=== PATIENT | female | born 1930 | race Caucasian/White ===

== ENCOUNTER 2016-09-06 09:59 | Inpatient (IN) ==
[2016-09-06] MEDS ORDERED: 0.9 % Sodium Chloride 500 ML IV.SOLN IV ONE (10:22)
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
[2016-09-06 10:32] LABS: Basophils # 0.1 K/mcL (0.0-0.2); Basophils % 0.4 %; Eosinophils % 0.1 %; Hematocrit 37.9 % (35.3-44.9); Hemoglobin 12.6 g/dL (11.5-15.4); Immature Granulocytes % 0.5 % (0-4); Lymphocytes # 0.8 K/mcL (0.6-4.6); Mean Corpuscular HGB Conc 33.2 g/dL (31.6-35.5); Mean Corpuscular Hemoglobin 32.6 pg (28.0-33.3); Mean Corpuscular Volume 98.2 fL (83.0-100.0); Monocytes # 0.9 K/mcL (0.0-1.3); Monocytes % 5.9 %; Neutrophils # 13.1 K/mcL (1.6-8.9); Platelet Count 279 K/mcL (140-400); Red Blood Count 3.86 M/mcL (3.82-4.97); Red Cell Distribution Width 14.4 % (11.5-14.5); Segmented Neutrophils % 88.1 %
[2016-09-06 10:36] LABS: INR 1.1; Prothrombin Time 11.5 Seconds (9.4-12.1)
[2016-09-06 10:39] LABS: Activated Partial Thrombo Time 28.8 Seconds (26.0-36.0)
[2016-09-06 10:46] LABS: Bilirubin,Urine Moderate (Negative); Blood,Urine Negative (Negative); Clarity,Urine Clear (Clear); Color,Urine Orange (Yellow); Glucose,Urine (UA) Normal (Normal); Ketones,Urine Trace mg/dL (Negative); Leukocyte Esterase,Urine Trace (Negative); Nitrite,Urine Negative (Negative); Protein,Urine Negative (Neg-Trace); Specific Gravity,Urine 1.022 (1.010-1.025)
[2016-09-06 10:46] LABS: Alanine Aminotransferase 136 Units/L (0-55); Albumin/Globulin Ratio 0.8 (1.1-2.2); Alkaline Phosphatase 1007 Units/L (38-126); Aspartate Amino Transferase 188 Units/L (5-34); BUN/Creatinine Ratio 18 (6-26); Bilirubin,Direct 3.5 mg/dL (0.0-0.5); Bilirubin,Indirect 0.9 mg/dL (0.0-1.2); Bilirubin,Total 4.4 mg/dL (0.2-1.2); Blood Urea Nitrogen 16 mg/dL (7-20); Calcium 8.7 mg/dL (8.6-10.8); Carbon Dioxide 26 mEq/L (19-29); Chloride 104 mEq/L (98-109); Globulin 3.9 g/dL (2.4-3.5); Glucose 112 mg/dL (70-99); Osmolality,Calculated 286 (280-300); Potassium 4.5 mEq/L (3.5-4.5); Sodium 137 mEq/L (136-145); Total Protein 6.9 g/dL (6.0-8.3); eGFR For African Americans > 60 (> 60); eGFR For Non-African Americans > 60 (> 60)
[2016-09-06 10:49] LABS: Bacteria,Urine None Seen per hpf (None-Few); Hyaline Casts,Urine None Seen per lpf (None-Few); RBC,Urine 0-3 per hpf (0-3); Squamous Epithelial Cell,Urine Moderate per lpf (None-Few); WBC,Urine 0-3 per hpf (0-3)
[2016-09-06 10:52] LABS: Amphetamine Screen,Urine Negative ng/mL (Cutoff=1000); Barbiturate Screen,Urine Negative ng/mL (Cutoff=200); Benzodiazepines Screen,Urine Negative ng/mL (Cutoff=200); Cannabinoid Screen,Urine Negative ng/mL (Cutoff = 50); Cocaine Screen,Urine Negative ng/mL (Cutoff= 300); Opiate Screen,Urine Negative ng/mL (Cutoff=300); Phencyclidine Screen,Urine Negative ng/mL (Cutoff=25)
[2016-09-06] MEDS ORDERED: 0.9 % Sodium Chloride 500 ML IVC ONE (11:04)
[2016-09-06 11:58] LABS: Lipase 39 Units/L (8-78)
[2016-09-06] MEDS ORDERED: Piperacillin/Tazobactam 3.375 GM in D5% in Water (Mini-Bag+) 100 ML IVPB ONE (12:49)
[2016-09-06] MEDS ORDERED: Ondansetron 4 MG/2 ML VIAL IVP PRN (13:49)
[2016-09-06] MEDS ORDERED: Naloxone 0.4 MG/ML INJ IVP PRN (13:49)
--- NOTE | 2016-09-06 13:59 | Internal Med History&Physical ---
<Marvin Munoz T - Last Filed: 09/06/16 17:52> Date of Encounter: 09/06/16 Internal Medicine - H&P: HPI History of present illness: Ms. Beard is a 85 year old female Past Med Surg Social Fam HX - Family History Mother History Unknown: Yes Internal Medicine - H&P: Meds Aripiprazole [Abilify] 15 mg PO QAM 02/22/16 [History] Aspirin 81 mg PO DAILY 02/22/16 [History] Cholecalciferol (Vitamin D3) [Vitamin D3] 2,000 unit PO DAILY 02/22/16 [History] Cyanocobalamin (Vitamin B-12) [Vitamin B-12] 500 mcg SL MOWEFR 02/22/16 [History ] Docusate Sodium [Dok] 100 mg PO DAILY 02/22/16 [History] Lisinopril [Zestril] 20 mg PO DAILY 02/22/16 [History] Multivitamin [Multivitamins] 1 each PO DAILY 02/22/16 [History] Metoprolol XL (24 HR) Succ [Toprol XL] 25 mg PO BID 09/06/16 [History] Vit C/Vit E/Lutein/Min/[place]-3 [Ocuvite Softgel] 1 cap PO DAILY 09/06/16 [ History] Allergies ibandronate sodium [From Boniva] Adverse Reaction (Intermediate, Verified 12:28) See Comments trazodone Adverse Reaction (Verified 02/23/16 12:27) [facility] PM: A 10-system review of systems was performed and is negative for pertinent findings except as documented above in the HPI. - Constitutional Vitals: Temp Pulse Resp BP Pulse Ox 98.0 F 80 18 179/73 98 09/06/16 10:04 09/06/16 11:05 09/06/16 13:51 09/06/16 13:51 09/06/16 11:05 Internal Med - H&P Results - Labs CBC & Chem 7: 09/06/16 10:25 09/06/16 10:25 - Attending Attestation I have independently interviewed and examined this patient. I agree with the resident/nurse practitioner with extensions as stated below. The plan of care has been discussed with the patient 85 Y/O F resident of assisted living said to be very dependent, but found to be altered by staff of her residence this morning. Patient is evaluated at bedside alone, no family members available. When asked for her complains she slowly states I am here for a checkup. She denies abdominal discomfort, she denies chest discomfort, she denies nausea or vomiting, she is very slow in mentation and sometimes stops answering questions mid-sentence. Physical exam is significant for a cachectic elderly female, jaundiced, no conjunctival pallor, she seemed stiff but is able to move all her extremities independently, she has no facial paralysis, no speech deficits except her mentation is slow, she is alert, and oriented X2, chest is clear, abdomen is soft, scaphoid, not tender, normal bowel sounds, Ann draining yellow urine. She does not have asterixis Labs and imaging reviewed: Mild hyperglycemia, transaminitis with AST/ALT 188/ 136 respectively, hyperbilirubinemia, direct, ALP 1007, normal lipase, UA: Bilirubinuria, Utox negative. Abdomen CT-hepatic and extrahepatic ductal dilatation, filling defect of the CBD s/p cholecystectomy, pancreas/kidneys unremarkable, Head CT no acute processes, CXR with atelectasis Assessment//Plan: *Obstructive jaundice, CT scan noted SBD filling defect, rule out stone vs malignancy, obtain MRCP, consult GI, Start gentle hydration, monitor Chem for pigment nephropathy *Altered mental status: Baseline is unknown, however at time of review, patient seems she, may have underlying mild dementia, Ammonia level is normal, no asterixis, it is unlikely she has hepatic encephalopathy. *Hx of HTN/Bipolar disorder: Stable, continue home meds *Leukocytosis is possibly from dehydration, Hyperglycemia, obtain A1C Rest of details as in [employer] documentation.. <Jennie Anna - Last Filed: 09/06/16 21:29> Date of Encounter: 09/06/16 Time of Encounter: 13:56 Assessment and Plan (1) Common bile duct (CBD) obstruction Current visit: Yes Status: Acute Patient with scleral icteris, elevated LFTs. Abdominal CT shows intrahepatic and extrahepatic biliary duct dilation. MRI of abdomen ordered GI consulted IV fluids 0.9NS at 80mL/hr recheck LFTs with tomorrow's labs (2) Elevated LFTs Current visit: Yes Status: Acute Patient with Tbili 4.4, Dbili 3.5, AST 108, ALT 136, Alk phos of 1007. These elevations are likely due to biliary duct obstruction as Abdominal CT showed intrahepatic and extrahepatic biliary duct dilation with common bile duct measuring 15mm. MRI of abdomen ordered GI consulted IV fluids 0.9NS at 80mL/hr recheck LFTs with labs tomorrow. (3) Altered mental status Current visit: Yes Status: Acute Patient oriented to person and place only. She follows directions, and answers questions appropriately, but does not elaborate. CT of her head was negative for any acute intracranial abnormality. She has elevated WBC and elevated LFTs , her mental status change is likely due to metabolic encephalopathy. UA was negative for infection and CXR showed atelectasis. Reorient as necessary and continue to assess for improvement in patient's mental status. Qualifiers: Altered mental status type: disorientation Qualified Code(s): R41.0 - Disorientation, unspecified (4) Dementia Current visit: Yes Status: Acute Patient with dementia and resides in assisted living. Patient not at her baseline, per the [facility] staff. Continue home dose of Abilify and monitor for improvements inmental status. Qualifiers: Dementia type: unspecified type Dementia behavioral disturbance: without behavioral disturbance Qualified Code(s): F03.90 - Unspecified dementia without behavioral disturbance (5) DVT prophylaxis Current visit: Yes Status: Acute ambulate with assistance anti-embolic stockings Internal Medicine - H&P: HPI Chief complaint: altered mental status Admitted From: Emergency Dept Plans for Post Hospital Care: Home History of present illness: Ms. Beard is a 85 year old female with hypertension, COPD, dementia, and CKD who was sent to the ED from her assisted living facility for mental status change. Her nurse reported she was not acting like herself this morning and was confused more than her baseline. Patient denies any pain, lightheadedness, dizziness, shortness of breath, palpitations. She reports she vomited yesterday , but denies any abdominal pain, diarrhea or dysuria. Evaluation in the ER was significant for elevated WBC count to 14.9, elevated LFTs with Tbili 4.4, AST/ ALT of 108/136 and alk phos of 1007. Ammonia level was normal at 19. CT of her abdomen and pelvis showed intrahepatic and extahepatic biliary duct dilation with common bile duct measuring up to 15mm. On exam, patient is alert and oriented to person and place only. She follows directions and answers questions appropriately, but does not elaborate. She has scleral icteris. Lungs are clear bilaterally to ascultation and heart has regular rate and rhythm. Abdomen is soft, nontender, with normal bowel sounds. Past Med Surg Social Fam HX - Past Medical History Medical history: COPD, dementia, hypertension, other Psychiatric history: other - Past Surgical History Surgical History: cholecystectomy - Social History Smoking Status: Former smoker Alcohol use: none Drug use: unknown Current living situation: Assisted Living All Systems PM: A 10-system review of systems was performed and is negative for pertinent findings except as documented above in the HPI. - Constitutional Constitutional: no chills, no fever(s), no night sweats - EENT Eyes: no change in vision, no discharge, no pain, no photophobia Ears: no ear discharge, no ear pain, no tinnitus Nose, mouth and throat: no dysphagia, no nasal discharge, no neck pain, no sore throat - Cardiovascular Cardiovascular ROS IM: no chest pain, no diaphoresis, no dyspnea, no lightheadedness, no palpitations, no syncope - Respiratory Respiratory: no cough, no dyspnea, no wheezing, no excessive phlegm production - Gastrointestinal Gastrointestinal: vomiting, no abdominal pain, no diarrhea, no hematemesis, no hematochezia, no melena, no nausea - Genitourinary Genitourinary: no change in urinary stream, no dysuria, no flank pain, no hematuria - Musculoskeletal Musculoskeletal ROS IM: no numbness, no tingling - Integumentary Integumentary IM: no rash, no unusual bruising - Neurological Neurological ROS: no confusion, no convulsions, no focal weakness, no numbness, no tingling, no tremor(s) - Hematologic/Lymphatic Hematologic/Lymphatic: no easy bruising - Constitutional Vitals: Temp Pulse Resp BP Pulse Ox 98.0 F 80 18 179/73 98 09/06/16 10:04 09/06/16 11:05 09/06/16 13:51 09/06/16 13:51 09/06/16 11:05 General appearance: Present: A&O X 2, pleasant - Head Head exam: Present: atraumatic, normocephalic - Eye Eye exam: Present: PERRL, scleral icterus, conjuntiva pink Pupils: Present: PERRL - Neck Neck exam general surgery: Present: supple, trachea midline. Absent: lymphadenopathy - Respiratory Respiratory exam: Present: CTAB. Absent: accessory muscle use, rales, rhonchi, wheezes - Cardiovascular Cardiovascular exam: Present: RRR, +S1, +S2. Absent: diastolic murmur, gallop, rubs, systolic murmur - GI/Abdominal GI/Abdominal exam: Present: normal bowel sounds, soft, no peritoneal signs. Absent: distended, tenderness - Extremities Exam Extremities exam: Present: warm, radial pulses palpable and symetrical. Absent : calf tenderness, cyanotic, pedal edema - Neurological Exam Neurological exam: Present: CN II-XII intact, oriented X3, no focal deficits. Absent: pronater drift, facial droop, speech deficit - Skin Skin exam: Present: dry, intact Internal Med - H&P Results - Labs CBC & Chem 7: 09/06/16 10:25 09/06/16 10:25 Labs: All Lab Results (24 Hours) 09/06/16 09/06/16 09/06/16 Range/Units 10:12 10:25 10:25 WBC 14.9 H (4.3-11.1) K/mcL RBC 3.86 (3.82-4.97) M/mcL Hgb 12.6 (11.5-15.4) g/dL Hct 37.9 (35.3-44.9) % MCV 98.2 (83.0-100.0) fL MCH 32.6 (28.0-33.3) pg MCHC 33.2 (31.6-35.5) g/dL RDW 14.4 (11.5-14.5) % Plt Count 279 (140-400) K/mcL MPV 10.0 (9.4-12.4) fL Immature Gran % 0.5 (0-4) % Seg Neutrophils % 88.1 % Lymphocytes % 5.0 % Monocytes % 5.9 % Eosinophils % 0.1 % Basophils % 0.4 % Neutrophils # 13.1 H (1.6-8.9) K/mcL Lymphocytes # 0.8 (0.6-4.6) K/mcL Monocytes # 0.9 (0.0-1.3) K/mcL Eosinophils # 0.0 (0.0-0.6) K/mcL Basophils # 0.1 (0.0-0.2) K/mcL PT 11.5 (9.4-12.1) Seconds INR 1.1 APTT 28.8 (26.0-36.0) Seconds Sodium (136-145) mEq/L Potassium (3.5-4.5) mEq/L Chloride (98-109) mEq/L Carbon Dioxide (19-29) mEq/L BUN (7-20) mg/dL Creatinine (0.57-1.11) mg/dL Est GFR ( Amer) (> 60) Est GFR (Non-Af Amer) (> 60) BUN/Creatinine Ratio (6-26) Glucose (70-99) mg/dL POC Glucose 106 H (58-89) Calculated Osmolality (280-300) Calcium (8.6-10.8) mg/dL Total Bilirubin (0.2-1.2) mg/dL Direct Bilirubin (0.0-0.5) mg/dL Indirect Bilirubin (0.0-1.2) mg/dL AST (5-34) Units/L ALT (0-55) Units/L Alkaline Phosphatase (38-126) Units/L Ammonia (18-72) mcmol/L Troponin I (0-0.03) ng/mL Serum Total Protein (6.0-8.3) g/dL Albumin (3.5-5.0) g/dL Globulin (2.4-3.5) g/dL Albumin/Globulin Ratio (1.1-2.2) Lipase (8-78) Units/L Urine Color (Yellow) Urine Clarity (Clear) Urine pH (5.0-8.0) pH Units Ur Specific [place] (1.010-1.025) Urine Protein (Neg-Trace) mg/dL Urine Glucose (UA) (Normal) mg/dL Urine Ketones (Negative) mg/dL Urine Blood (Negative) Urine Nitrite (Negative) Urine Bilirubin (Negative) Urine Urobilinogen (Normal) mg/dL Ur Leukocyte Esterase (Negative) Urine Microscopic RBC (0-3) per hpf Urine Microscopic WBC (0-3) per hpf Ur Squamous Epith Cells (None-Few) per lpf Urine Bacteria (None-Few) per hpf Hyaline Casts (None-Few) per lpf Ur Culture Indicated? (NO) Urine Opiates Screen (Jyuact=342) ng/mL Ur Barbiturates Screen (Zpsozs=575) ng/mL Ur Phencyclidine Scrn (Cutoff=25) ng/mL Ur Amphetamines Screen (Twvabo=0525) ng/mL U Benzodiazepines Scrn (Ccyojl=160) ng/mL Urine Cocaine Screen (Cutoff= 300) ng/mL U Marijuana (THC) Screen (Cutoff = 50) ng/mL 09/06/16 09/06/16 09/06/16 Range/Units 10:25 10:25 10:35 WBC (4.3-11.1) K/mcL RBC (3.82-4.97) M/mcL Hgb (11.5-15.4) g/dL Hct (35.3-44.9) % MCV (83.0-100.0) fL MCH (28.0-33.3) pg MCHC (31.6-35.5) g/dL RDW (11.5-14.5) % Plt Count (140-400) K/mcL MPV (9.4-12.4) fL Immature Gran % (0-4) % Seg Neutrophils % % Lymphocytes % % Monocytes % % Eosinophils % % Basophils % % Neutrophils # (1.6-8.9) K/mcL Lymphocytes # (0.6-4.6) K/mcL Monocytes # (0.0-1.3) K/mcL Eosinophils # (0.0-0.6) K/mcL Basophils # (0.0-0.2) K/mcL PT (9.4-12.1) Seconds INR APTT (26.0-36.0) Seconds Sodium 137 (136-145) mEq/L Potassium 4.5 (3.5-4.5) mEq/L Chloride 104 (98-109) mEq/L Carbon Dioxide 26 (19-29) mEq/L BUN 16 (7-20) mg/dL Creatinine 0.87 (0.57-1.11) mg/dL Est GFR ( Amer) > 60 (> 60) Est GFR (Non-Af Amer) > 60 (> 60) BUN/Creatinine Ratio 18 (6-26) Glucose 112 H (70-99) mg/dL POC Glucose (58-89) Calculated Osmolality 286 (280-300) Calcium 8.7 (8.6-10.8) mg/dL Total Bilirubin 4.4 H (0.2-1.2) mg/dL Direct Bilirubin 3.5 H (0.0-0.5) mg/dL Indirect Bilirubin 0.9 (0.0-1.2) mg/dL AST 188 H (5-34) Units/L ALT 136 H (0-55) Units/L Alkaline Phosphatase 1007 H (38-126) Units/L Ammonia (18-72) mcmol/L Troponin I 0.01 (0-0.03) ng/mL Serum Total Protein 6.9 (6.0-8.3) g/dL Albumin 3.0 L (3.5-5.0) g/dL Globulin 3.9 H (2.4-3.5) g/dL Albumin/Globulin Ratio 0.8 L (1.1-2.2) Lipase 39 (8-78) Units/L Urine Color [place] A (Yellow) Urine Clarity Clear (Clear) Urine pH 6.0 (5.0-8.0) pH Units Ur Specific [place] 1.022 (1.010-1.025) Urine Protein Negative (Neg-Trace) mg/dL Urine Glucose (UA) Normal (Normal) mg/dL Urine Ketones Trace H (Negative) mg/dL Urine Blood Negative (Negative) Urine Nitrite Negative (Negative) Urine Bilirubin Moderate H (Negative) Urine Urobilinogen 4.0 H (Normal) mg/dL Ur Leukocyte Esterase Trace H (Negative) Urine Microscopic RBC 0-3 (0-3) per hpf Urine Microscopic WBC 0-3 (0-3) per hpf Ur Squamous Epith Cells Moderate H (None-Few) per lpf Urine Bacteria None Seen (None-Few) per hpf Hyaline Casts None Seen (None-Few) per lpf Ur Culture Indicated? YES A (NO) Urine Opiates Screen (Bulowp=073) ng/mL Ur Barbiturates Screen (Aanvfb=455) ng/mL Ur Phencyclidine Scrn (Cutoff=25) ng/mL Ur Amphetamines Screen (Zxnycd=2982) ng/mL U Benzodiazepines Scrn (Osxjlj=170) ng/mL Urine Cocaine Screen (Cutoff= 300) ng/mL U Marijuana (THC) Screen (Cutoff = 50) ng/mL 09/06/16 09/06/16 Range/Units 10:35 11:56 WBC (4.3-11.1) K/mcL RBC (3.82-4.97) M/mcL Hgb (11.5-15.4) g/dL Hct (35.3-44.9) % MCV (83.0-100.0) fL MCH (28.0-33.3) pg MCHC (31.6-35.5) g/dL RDW (11.5-14.5) % Plt Count (140-400) K/mcL MPV (9.4-12.4) fL Immature Gran % (0-4) % Seg Neutrophils % % Lymphocytes % % Monocytes % % Eosinophils % % Basophils % % Neutrophils # (1.6-8.9) K/mcL Lymphocytes # (0.6-4.6) K/mcL Monocytes # (0.0-1.3) K/mcL Eosinophils # (0.0-0.6) K/mcL Basophils # (0.0-0.2) K/mcL PT (9.4-12.1) Seconds INR APTT (26.0-36.0) Seconds Sodium (136-145) mEq/L Potassium (3.5-4.5) mEq/L Chloride (98-109) mEq/L Carbon Dioxide (19-29) mEq/L BUN (7-20) mg/dL Creatinine (0.57-1.11) mg/dL Est GFR ( Amer) (> 60) Est GFR (Non-Af Amer) (> 60) BUN/Creatinine Ratio (6-26) Glucose (70-99) mg/dL POC Glucose (58-89) Calculated Osmolality (280-300) Calcium (8.6-10.8) mg/dL Total Bilirubin (0.2-1.2) mg/dL Direct Bilirubin (0.0-0.5) mg/dL Indirect Bilirubin (0.0-1.2) mg/dL AST (5-34) Units/L ALT (0-55) Units/L Alkaline Phosphatase (38-126) Units/L Ammonia 19 (18-72) mcmol/L Troponin I (0-0.03) ng/mL Serum Total Protein (6.0-8.3) g/dL Albumin (3.5-5.0) g/dL Globulin (2.4-3.5) g/dL Albumin/Globulin Ratio (1.1-2.2) Lipase (8-78) Units/L Urine Color (Yellow) Urine Clarity (Clear) Urine pH (5.0-8.0) pH Units Ur Specific [place] (1.010-1.025) Urine Protein (Neg-Trace) mg/dL Urine Glucose (UA) (Normal) mg/dL Urine Ketones (Negative) mg/dL Urine Blood (Negative) Urine Nitrite (Negative) Urine Bilirubin (Negative) Urine Urobilinogen (Normal) mg/dL Ur Leukocyte Esterase (Negative) Urine Microscopic RBC (0-3) per hpf Urine Microscopic WBC (0-3) per hpf Ur Squamous Epith Cells (None-Few) per lpf Urine Bacteria (None-Few) per hpf Hyaline Casts (None-Few) per lpf Ur Culture Indicated? (NO) Urine Opiates Screen Negative (Cljxdr=522) ng/mL Ur Barbiturates Screen Negative (Uxutpe=600) ng/mL Ur Phencyclidine Scrn Negative (Cutoff=25) ng/mL Ur Amphetamines Screen Negative (Ebzrai=4203) ng/mL U Benzodiazepines Scrn Negative (Bddlwv=888) ng/mL Urine Cocaine Screen Negative (Cutoff= 300) ng/mL U Marijuana (THC) Screen Negative (Cutoff = 50) ng/mL - Diagnostic Studies Chest x-ray Additional comments: Chest X-Ray 09/06/16 10:08 IMPRESSION: Retrocardiac infiltrate which could represent atelectasis or pneumonia. D/ / Storm Keller MD / Storm Keller MD Interpreting Provider: Storm Keller MD CT scan - head Additional comments: Head CT 09/06/16 10:09 IMPRESSION: No acute intracranial abnormality. Stable exam with findings compatible with mild age related atrophy and likely chronic small vessel ischemic change. D/ / Nabeel Lopez MD / Nabeel Lopez MD Interpreting Provider: Nabeel Lopez MD CT scan - abdomen Additional comments: Abdomen/Pelvis CT 09/06/16 11:03 IMPRESSION: 1. There is intrahepatic and extrahepatic biliary ductal dilatation with the common bile duct measuring up to 15 mm. There appears to be a soft tissue attenuation filling defect within the distal CBD in the region of the ampulla. Consider further evaluation with MRI/MRCP. 2. A small amount of fluid is seen within the colon, which can be seen with diarrhea. 3. Otherwise, no acute abnormality identified within the abdomen or pelvis. D/ / Loco Brand MD / Loco Brand MD Interpreting Provider: Loco Brand MD
--- NOTE | 2016-09-06 16:03 | Electrocardiograph Report ---
[address] [place], [place] [address] Test Date: 2016-09-06 Pat Name: Sherry Beard Department: 105 Room: 2A Gender: F Lorry Weigher: EDGAR : 1930 Requested By: Faina Allen Order Number: [id number] Reading MD: Christiano Bacon MD Measurements Intervals [place] Rate: 82 P: 81 KS: 170 QRS: 38 QRSD: 72 T: 109 QT: 332 QTc: 371 Interpretive Statements SINUS RHYTHM lateral ischemia BASELINE ARTIFACT Electronically Signed On 09-06-2016 16:01:54 EDT by Christiano Bacon MD
[2016-09-06] MEDS: 0.9 % Sodium Chloride 1,000 ML IVC SCH (17:53)
[2016-09-06] MEDS: Famotidine 20 MG TABLET PO SCH (20:48)
[2016-09-06] MEDS: Metoprolol XL (24 HR) Succ 25 MG TAB.ER.24H PO SCH (20:48)
[2016-09-07 05:49] LABS: Alanine Aminotransferase 87 Units/L (0-55); Albumin/Globulin Ratio 0.7 (1.1-2.2); Alkaline Phosphatase 727 Units/L (38-126); Aspartate Amino Transferase 101 Units/L (5-34); BUN/Creatinine Ratio 17 (6-26); Bilirubin,Indirect 0.9 mg/dL (0.0-1.2); Bilirubin,Total 2.5 mg/dL (0.2-1.2); Blood Urea Nitrogen 13 mg/dL (7-20); Calcium 7.9 mg/dL (8.6-10.8); Carbon Dioxide 22 mEq/L (19-29); Chloride 109 mEq/L (98-109); Globulin 3.1 g/dL (2.4-3.5); Glucose 81 mg/dL (70-99); Osmolality,Calculated 287 (280-300); Potassium 3.9 mEq/L (3.5-4.5); Sodium 139 mEq/L (136-145); eGFR For African Americans > 60 (> 60); eGFR For Non-African Americans > 60 (> 60)
[2016-09-07 05:53] LABS: Albumin 2.3 g/dL (3.5-5.0); Bilirubin,Direct 1.6 mg/dL (0.0-0.5); Total Protein 5.4 g/dL (6.0-8.3)
[2016-09-07] MEDS: *HR* Enoxaparin 40 MG/0.4 ML SYRINGE SQ SCH (06:12)
[2016-09-07] MEDS: 0.9 % Sodium Chloride 1,000 ML IVC SCH ×2 (06:13→17:33)
[2016-09-07 07:26] LABS: Acinetobacter baumannii by PCR Not Detected (Not Detect); Candida albicans by PCR Not Detected (Not Detect); Candida glabrata by PCR Not Detected (Not Detect); Candida krusei by PCR Not Detected (Not Detect); Candida parapsilosis by PCR Not Detected (Not Detect); Candida tropicalis by PCR Not Detected (Not Detect); Enterococcus by PCR Not Detected (Not Detect); Escherichia coli by PCR Not Detected (Not Detect); Klebsiella oxytoca by PCR Not Detected (Not Detect); Klebsiella pneumoniae by PCR ***DETECTED*** (Not Detect); Pseudomonas aeruginosa by PCR Not Detected (Not Detect); Serratia marcescens by PCR Not Detected (Not Detect); Staphylococcus aureus by PCR Not Detected (Not Detect); Streptococcus agalactiae(B)PCR Not Detected (Not Detect); Streptococcus by PCR Not Detected (Not Detect); Streptococcus pneumoniae PCR Not Detected (Not Detect); Streptococcus pyogenes (A) PCR Not Detected (Not Detect); blaKPC Carbapenem-Resist Gene Not Detected (Not Detect)
[2016-09-07] MEDS: ARIPiprazole 5 MG TABLET PO SCH (08:13)
[2016-09-07] MEDS: Famotidine 20 MG TABLET PO SCH (08:13)
[2016-09-07] MEDS: Lisinopril 20 MG TABLET PO SCH (08:13)
[2016-09-07] MEDS: Metoprolol XL (24 HR) Succ 25 MG TAB.ER.24H PO SCH ×2 (08:14→20:33)
[2016-09-07] MEDS: Aspirin 81 MG TAB.CHEW PO SCH (08:14)
--- NOTE | 2016-09-07 11:06 | Internal Med Progress Note ---
Date of Encounter: 09/07/16 Time of Encounter: 11:06 - Assessment and plan (1) Acute encephalopathy Current Visit: Yes Status: Resolved Assessment and plan: Patient is currently noted to be at baseline mental status, she does have underlying dementia. Continue treatment for underlying medical condition. (2) Common bile duct (CBD) obstruction Current Visit: Yes Status: Acute Assessment and plan: Patient is admitted with obstructive jaundice. MRCP showed evidence of 14 x 11 mm common bile duct stone. Patient is noted to have leukocytosis and gram- negative bacteremia. Continue IV Zosyn and IV hydration. Liver enzymes and bilirubin are noted to be improving. GI has been consulted, patient cannot undergo ERCP today due to not being nothing by mouth. Recommend to continue monitoring and to transfer to critical access Hospital in the event of deterioration over the weekend. (3) Dementia Current Visit: Yes Status: Chronic Qualifiers: Dementia type: Alzheimer's disease Alzheimer's disease onset: late-onset Dementia behavioral disturbance: without behavioral disturbance Qualified Code (s): G30.1 - Alzheimer's disease with late onset; F02.80 - Dementia in other diseases classified elsewhere without behavioral disturbance (4) Bipolar disorder Current Visit: Yes Status: Chronic Qualifiers: Active/Remission status: remission status unspecified Qualified Code(s): F31.9 - Bipolar disorder, unspecified (5) COPD (chronic obstructive pulmonary disease) Current Visit: Yes Status: Chronic Assessment and plan: Not noted to be in acute exacerbation. Continue bronchodilators and supplemental oxygen as needed. Qualifiers: COPD type: unspecified COPD Qualified Code(s): J44.9 - Chronic obstructive pulmonary disease, unspecified (6) Gram-negative bacteremia Current Visit: Yes Status: Acute Assessment and plan: Secondary to biliary etiology due to obstructive jaundice and common bile duct stone. Follow-up complete blood culture reports, and repeat cultures in a.m. Serology positive for Enterobacteriaceae and Klebsiella. Continue IV Zosyn. High risk for complications. - Subjective Interval history: Noted to be tired, denies nausea, vomiting, abdominal pain or diarrhea. Cannot undergo ERCP today as patient has not been nothing by mouth. - Constitutional Vitals: Temp Pulse Resp BP Pulse Ox 97.8 F 61 14 150/62 100 09/07/16 07:09 09/07/16 07:09 09/07/16 07:09 09/07/16 07:09 09/07/16 07:09 General appearance: Present: A&O X 2, pleasant - Respiratory Respiratory exam: Present: CTAB. Absent: accessory muscle use, rales, rhonchi, wheezes - Cardiovascular Cardiovascular exam: Present: RRR, +S1, +S2. Absent: diastolic murmur, gallop, rubs, systolic murmur - GI/Abdominal GI/Abdominal exam: Present: normal bowel sounds, soft, no peritoneal signs. Absent: distended, tenderness - Extremities Exam Extremities exam: Present: full ROM, warm, radial pulses palpable and symetrical. Absent: calf tenderness, cyanotic, pedal edema Internal Medicine: Result - Labs CBC & Chem 7: 09/08/16 06:20 09/09/16 06:40 Labs: BMP 09/07/16 04:28 Sodium 139 Potassium 3.9 Chloride 109 Carbon Dioxide 22 BUN 13 Creatinine 0.78 Glucose 81 Calcium 7.9 L Liver Function 09/07/16 Range/Units 04:28 Total Bilirubin 2.5 H (0.2-1.2) mg/dL Direct Bilirubin 1.6 H D (0.0-0.5) mg/dL AST 101 H (5-34) Units/L ALT 87 H (0-55) Units/L Alkaline Phosphatase 727 H (38-126) Units/L Albumin 2.3 L D (3.5-5.0) g/dL - ABG Interpretation ABG results: PT/INR, D-dimer PT 11.5 Seconds (9.4-12.1) 09/06/16 10:25 - VTE Documentation of Mechanical Device: Intermittent pneumatic compression device Consult Discharge Plan - Plan Referrals: Mirza Lopez DO [Primary Care Provider] - (WEB REQUEST SENT ON 09/07/16 This patient is from [facility].. )
--- NOTE | 2016-09-07 11:44 | Gastroenterology Consult Note ---
Addendum entered and electronically signed by Mark Manzano CNP 09/07/16 12 :47: Pt with cholangitis, WBC 14.9. Unable to complete ERCP due to the patient eating breakfast this morning. If the patient worsens, recommend transfer to [place]. Original Note: <Mark Manzano - Last Filed: 09/07/16 11:42> Date of Encounter: 09/07/16 Time of Encounter: 10:00 - Assessment and plan (1) Common bile duct (CBD) obstruction Current Visit: Yes Status: Acute Assessment and plan: MRCP with moderate intra-and extrahepatic biliary dilation secondary to large obstructing stone in the distal CBD measuring 14 x 11 mm, pancreatic divisum without ductal dilation. Unable to complete ERCP today because pt ate breakfast this morning. Will plan for ERCP on Saturday. NPO at midnight on Saturday night. Also, I was unable to contact her POA Ty Duke at [phone] for consent for ERCP. (2) Elevated LFTs Current Visit: Yes Status: Acute Assessment and plan: LFTs improving. MRCP shows large obstructing stone in distal CBD. Plan for ERCP Saturday. (3) Dementia Current Visit: Yes Status: Acute Qualifiers: Dementia type: unspecified type Dementia behavioral disturbance: without behavioral disturbance Qualified Code(s): F03.90 - Unspecified dementia without behavioral disturbance - Time Spent With Patient Total time spent is greater than 50% in coordination of care (as documented) at patient's floor/unit and/or counseling patient: GI History of Present Illness - Data of Consult Patient: new to practice Consult date: 09/07/16 Requesting Physician: Liz Ortiz MD - Consult Narrative Reason for consult: obstructive jaundice History of present illness: Ms. Beard is a 85 year old female with PMHx of COPD, dementia, HTN, CKD who presented to the ED from her assisted living facility for mental status change. She denies and pain, lightheadedness, dizziness, SOB, abdominal pain, nausea, vomiting, diarrhea. She was noted to have jaundice on admission, with TB 4.4, DB 3.5. AST 188, ALT 136. CT A/P with intrahepatic and extrahepatic biliary ductal dilation with CBD measuring up to 15 mm, there appears to be a soft tissue attenuation filling defect within the distal CBD in the region of the ampulla. MRCP with moderate intra-and extrahepatic biliary dilation secondary to large obstructing stone in the distal CBD measuring 14 x 11 mm, pancreatic divisum without ductal dilation. Procedures: Colonoscopy 10/04/[address] Sevilla: Nonspecific chronic inflammation. NSAIDs: ASA Anticoagulation: None Past Med Surg Social Fam HX - Past Medical History Medical history: COPD, dementia, hypertension, other Psychiatric history: other - Past Surgical History Surgical History: cholecystectomy - Social History Smoking Status: Former smoker Smokeless Tobacco Status: No Alcohol use: none Drug use: unknown - Family History Mother History Unknown: Yes - Gastrointestinal Gastrointestinal: Present: as per HPI - Constitutional Constitutional: as per HPI - EENT Eyes: as per HPI Ears: Present: as per HPI Nose, mouth and throat: Present: as per HPI - Cardiovascular Cardiovascular ROS: Present: as per HPI - Respiratory Respiratory IM: Present: as per HPI - Genitourinary Genitourinary: Absent: change in color, Urinary frequency - Neurological ROS Neurological GI: Present: as per HPI - Hematologic/Lymphatic Hematologic/Lymphatic pediatric: Present: as per HPI - Musculoskeletal Musculoskeletal ROS GI: Present: as per HPI - Integumentary Integumentary GI: Present: as per HPI - Psychiatric ROS Psychiatric GI: Present: as per HPI - Endocrine Endocrine IM: Present: as per HPI - Constitutional Vitals: Temp Pulse Resp BP Pulse Ox 97.4 F L 65 16 149/68 98 09/07/16 11:05 09/07/16 11:05 09/07/16 11:05 09/07/16 11:05 09/07/16 11:05 General appearance: Present: cooperative, A&O X 3, no acute distress, answers questions appropriately - Head Head exam: Present: atraumatic, normocephalic - Eye Eye exam: Present: scleral icterus - ENT ENT exam: Present: mucous membranes moist - Neck Neck exam general surgery: Present: normal inspection, trachea midline - Respiratory Respiratory exam: Present: CTAB. Absent: rales, rhonchi - Cardiovascular Cardiovascular exam: Present: RRR, +S1, +S2 - GI/Abdominal GI/Abdominal exam: Present: soft, no peritoneal signs. Absent: distended, firm , guarding, tenderness - Rectal Rectal exam: Present: deferred - Extremities Exam Extremities exam: Present: warm - Neurological Exam Neurological exam: Present: no focal deficits - Psychiatric Psychiatric exam: Present: normal affect, normal mood - Skin Skin exam: Present: dry, intact, warm. Absent: normal color (jaundice) Results - Labs CBC & Chem 7: 09/06/16 10:25 09/07/16 04:28 Labs: Last Result Calcium 7.9 mg/dL (8.6-10.8) L 09/07/16 04:28 Troponin I 0.01 ng/mL (0-0.03) 09/06/16 10:25 Urine Opiates Screen Negative ng/mL (Iektxs=425) 09/06/16 10:35 Entire Visit Hgb 12.6 g/dL (11.5-15.4) 09/06/16 10:25 Hct 37.9 % (35.3-44.9) 09/06/16 10:25 PT 11.5 Seconds (9.4-12.1) 09/06/16 10:25 Total Bilirubin 2.5 mg/dL (0.2-1.2) H 09/07/16 04:28 AST 101 Units/L (5-34) H 09/07/16 04:28 ALT 87 Units/L (0-55) H 09/07/16 04:28 Ammonia 19 mcmol/L (18-72) 09/06/16 11:56 Lipase 39 Units/L (8-78) 09/06/16 10:25 E. coli (PCR) Not Detected (Not Detect) 09/06/16 11:56 - ABG ABG results: PT/INR, D-dimer PT 11.5 Seconds (9.4-12.1) 09/06/16 10:25 Consult Discharge Plan - Plan Referrals: Mirza Lopez DO [Primary Care Provider] - (WEB REQUEST SENT ON 09/07/16 ) <Merlin Benitez - Last Filed: 09/07/16 14:37> Date of Encounter: 09/07/16 Time of Encounter: 10:00 - Time Spent With Patient Total time spent is greater than 50% in coordination of care (as documented) at patient's floor/unit and/or counseling patient: GI History of Present Illness - Data of Consult Requesting Physician: Liz Ortiz MD - Consult Narrative History of present illness: Ms. Beard is a 85 year old female - Constitutional Vitals: Temp Pulse Resp BP Pulse Ox 97.4 F L 65 16 149/68 98 09/07/16 11:05 09/07/16 11:05 09/07/16 11:05 09/07/16 11:05 09/07/16 11:05 Results - Labs CBC & Chem 7: 09/06/16 10:25 09/07/16 04:28 Labs: Last Result Calcium 7.9 mg/dL (8.6-10.8) L 09/07/16 04:28 Troponin I 0.01 ng/mL (0-0.03) 09/06/16 10:25 Urine Opiates Screen Negative ng/mL (Fmmlyn=315) 09/06/16 10:35 Entire Visit Hgb 12.6 g/dL (11.5-15.4) 09/06/16 10:25 Hct 37.9 % (35.3-44.9) 09/06/16 10:25 PT 11.5 Seconds (9.4-12.1) 09/06/16 10:25 Total Bilirubin 2.5 mg/dL (0.2-1.2) H 09/07/16 04:28 AST 101 Units/L (5-34) H 09/07/16 04:28 ALT 87 Units/L (0-55) H 09/07/16 04:28 Ammonia 19 mcmol/L (18-72) 09/06/16 11:56 Lipase 39 Units/L (8-78) 09/06/16 10:25 E. coli (PCR) Not Detected (Not Detect) 09/06/16 11:56 - ABG ABG results: PT/INR, D-dimer PT 11.5 Seconds (9.4-12.1) 09/06/16 10:25 - Attending Attestation I examined this patient and my medical decision-making was reviewed with the VETERANS REHABILITATION COUNSELOR/PA/Advanced Practice Nurse/Resident Physician. I agree with the documented findings, disposition and treatment plan as described except to the extent set forth below. Pt with CBD stone with cholangitis. Ate regular breakfast. LFTS better today, clinically doing well. Cont IV Abs, ERCP on saturday but if nay sign of worsening then transfer to [place].
[2016-09-07] MEDS: Piperacillin/Tazobactam 3.375 GM in D5% in Water (Mini-Bag+) 100 ML IVPB SCH ×2 (12:20→18:48)
[2016-09-08] MEDS: Piperacillin/Tazobactam 3.375 GM in D5% in Water (Mini-Bag+) 100 ML IVPB SCH ×3 (03:13→19:18)
[2016-09-08] MEDS: 0.9 % Sodium Chloride 1,000 ML IVC SCH (06:08)
[2016-09-08] MEDS: *HR* Enoxaparin 40 MG/0.4 ML SYRINGE SQ SCH (06:49)
[2016-09-08 06:55] LABS: Basophils # 0.1 K/mcL (0.0-0.2); Basophils % 1.1 %; Eosinophils # 0.3 K/mcL (0.0-0.6); Eosinophils % 4.9 %; Hematocrit 30.9 % (35.3-44.9); Immature Granulocytes % 0.7 % (0-4); Lymphocytes # 0.9 K/mcL (0.6-4.6); Lymphocytes % 15.7 %; Mean Corpuscular HGB Conc 32.7 g/dL (31.6-35.5); Mean Corpuscular Hemoglobin 32.8 pg (28.0-33.3); Mean Corpuscular Volume 100.3 fL (83.0-100.0); Mean Platelet Volume 10.6 fL (9.4-12.4); Monocytes # 0.6 K/mcL (0.0-1.3); Monocytes % 10.8 %; Neutrophils # 3.7 K/mcL (1.6-8.9); Platelet Count 201 K/mcL (140-400); Red Blood Count 3.08 M/mcL (3.82-4.97); Red Cell Distribution Width 14.3 % (11.5-14.5); Segmented Neutrophils % 66.8 %
[2016-09-08 06:59] LABS: Alanine Aminotransferase 71 Units/L (0-55); Albumin 2.1 g/dL (3.5-5.0); Albumin/Globulin Ratio 0.7 (1.1-2.2); Alkaline Phosphatase 697 Units/L (38-126); Aspartate Amino Transferase 82 Units/L (5-34); BUN/Creatinine Ratio 17 (6-26); Bilirubin,Total 1.7 mg/dL (0.2-1.2); Blood Urea Nitrogen 13 mg/dL (7-20); Calcium 7.7 mg/dL (8.6-10.8); Carbon Dioxide 19 mEq/L (19-29); Chloride 113 mEq/L (98-109); Glucose 96 mg/dL (70-99); Osmolality,Calculated 290 (280-300); Potassium 3.8 mEq/L (3.5-4.5); Sodium 140 mEq/L (136-145); Total Protein 5.1 g/dL (6.0-8.3); eGFR For African Americans > 60 (> 60); eGFR For Non-African Americans > 60 (> 60)
[2016-09-08 07:08] LABS: Hemoglobin 10.1 g/dL (11.5-15.4)
[2016-09-08] MEDS: ARIPiprazole 5 MG TABLET PO SCH (10:16)
[2016-09-08] MEDS: Metoprolol XL (24 HR) Succ 25 MG TAB.ER.24H PO SCH ×2 (10:16→21:52)
[2016-09-08] MEDS: Lisinopril 20 MG TABLET PO SCH (10:16)
[2016-09-08] MEDS: Aspirin 81 MG TAB.CHEW PO SCH (10:25)
--- NOTE | 2016-09-08 12:07 | Anesthesia Evaluation PreOp ---
Date of Encounter: 09/08/16 Time of Encounter: 12:04 - Past History Planned Operation: ERCP Cardiac History: HTN Pulmonary History: Denies Any Significant HX GRAPHIC EDITOR History: Other (Dementia) Other Medical History: Denies Any Significant HX Anesthesia History: No Prior Anesthetic Complications, Past Anesthesia ( Cholecystectomy) Alcohol Use: none Drug use: unknown Medications and Allergies Aripiprazole [Abilify] 15 mg PO QAM 02/22/16 [History] Aspirin 81 mg PO DAILY 02/22/16 [History] Cholecalciferol (Vitamin D3) [Vitamin D3] 2,000 unit PO DAILY 02/22/16 [History] Cyanocobalamin (Vitamin B-12) [Vitamin B-12] 500 mcg SL MOWEFR 02/22/16 [History ] Docusate Sodium [Dok] 100 mg PO DAILY 02/22/16 [History] Lisinopril [Zestril] 20 mg PO DAILY 02/22/16 [History] Multivitamin [Multivitamins] 1 each PO DAILY 02/22/16 [History] Metoprolol XL (24 HR) Succ [Toprol XL] 25 mg PO BID 09/06/16 [History] Vit C/Vit E/Lutein/Min/Mccormick-3 [Ocuvite Softgel] 1 cap PO DAILY 09/06/16 [ History] Allergies ibandronate sodium [From Boniva] Adverse Reaction (Intermediate, Verified 12:28) See Comments trazodone Adverse Reaction (Verified 02/23/16 12:27) Nightmare - Meds/Allergy Pre-op Review Medications Reviewed: Yes Allergies Reviewed: Yes Beta Blockers on Current Med List: Yes If Beta Blockers taken, Date/Time (Last Dose taken): today 1016am Anesthesia Results - Labs 09/08/16 06:20 09/08/16 06:20 - Imaging EKG: report reviewed (SR, lateral ischemia, baseline) Anesthesia Exam Vital Signs/O2 Sat, Most Current Temp Pulse Resp BP Pulse Ox 97.8 F 52 16 154/73 100 09/08/16 07:19 09/08/16 11:56 09/08/16 11:56 09/08/16 11:56 09/08/16 11:56 Weight: 53kg NPO (# of Hours): >8 Pain Scale: 0 Pain Scale Used: Numeric (1 - 10) - HEENT Pupil (Motor): Pupils equal, EOMI Mallampati: III (small recessive chin) Teeth: Poor dentition Oral Opening: Less than or equal to 3 - GRAPHIC EDITOR LOC: Oriented GRAPHIC EDITOR Motor: Normal RUE, Normal LUE, Normal RLE, Normal LLE, Normal Face GRAPHIC EDITOR Sensory: Normal: RUE, LUE, RLE, LLE, Face - Cardiac Rhythm: Regular - Pulmonary Breath Sounds: bilateral Clear Respiratory Effort: Symmetrical Anesthesia Assess/Plan ASA Score: 2 Modified Boykins Scale for Level of Consciousness: Cooperative, oriented, and tranquil Anesthetic Plan: General (GETA) Monitoring Plan: Standard Monitors Recovery Plan: PACU
[2016-09-08] MEDS ORDERED: *HR* Propofol 200 MG/20 ML VIAL IVP ONE (12:08)
[2016-09-08] MEDS ORDERED: *HR* FentaNYL (PF) 100 MCG/2 ML VIAL ONE (12:08)
[2016-09-08] MEDS ORDERED: Lidocaine -MPF 2% 2 ML VIAL ONE (12:11)
[2016-09-08] MEDS ORDERED: *HR* Rocuronium Bromide 50 MG/5 ML VIAL ONE (12:11)
[2016-09-08] MEDS ORDERED: Lidocaine -MPF 4% 5 ML AMPUL ONE (12:11)
[2016-09-08] MEDS ORDERED: *HR* Phenylephrine 10 MG/ML VIAL ONE (12:12)
[2016-09-08] MEDS ORDERED: Lacri-Lube 3.5 GM TUBE ONE (12:18)
[2016-09-08] MEDS ORDERED: Indomethacin 50 MG SUPP.RECT RC ONE (12:43)
[2016-09-08] MEDS ORDERED: Dexamethasone 4 MG/ML VIAL ONE (12:55)
[2016-09-08] MEDS ORDERED: Ondansetron 4 MG/2 ML VIAL ONE ×2 (13:18→14:20)
--- NOTE | 2016-09-08 16:32 | Anesthesia Evaluation Post Op ---
Date of Encounter: 09/08/16 Time of Encounter: 16:31 - Vital Signs Vital Signs: Vital Signs/O2 Sat, Most Current Temp Pulse Resp BP Pulse Ox 97.8 F 67 16 178/65 99 09/08/16 07:19 09/08/16 15:21 09/08/16 15:21 09/08/16 15:21 09/08/16 15:21 - Lungs Lungs: Clear Ascult./Percussion - Airway Airway: Non-obstructed - Cardiovascular Regular Rate - Mental Status Mental Status: Asleep with brisk response to light stimulation, Baseline Status - Pain Pain Scale: 0 - Nausea Vomiting Nausea Vomiting: Not Present - Hydration Hydration: NPO - Discharge PostOp Status: Transfer Patient to floor Attestation: I have assessed this patient and find they meet discharge criteria.
[2016-09-08] MEDS ORDERED: D5% in 0.45% NACL 1,000 ML IVC SCH (16:45)
[2016-09-08] MEDS: amLODIPine 5 MG TABLET PO SCH (19:17)
[2016-09-09] MEDS: Piperacillin/Tazobactam 3.375 GM in D5% in Water (Mini-Bag+) 100 ML IVPB SCH ×2 (05:03→11:00)
[2016-09-09] MEDS: *HR* Enoxaparin 40 MG/0.4 ML SYRINGE SQ SCH (06:22)
[2016-09-09 07:48] LABS: Alanine Aminotransferase 60 Units/L (0-55); Albumin 2.3 g/dL (3.5-5.0); Albumin/Globulin Ratio 0.7 (1.1-2.2); Alkaline Phosphatase 661 Units/L (38-126); Aspartate Amino Transferase 53 Units/L (5-34); BUN/Creatinine Ratio 13 (6-26); Bilirubin,Total 1.6 mg/dL (0.2-1.2); Blood Urea Nitrogen 11 mg/dL (7-20); Calcium 8.2 mg/dL (8.6-10.8); Carbon Dioxide 19 mEq/L (19-29); Chloride 109 mEq/L (98-109); Globulin 3.3 g/dL (2.4-3.5); Glucose 145 mg/dL (70-99); Osmolality,Calculated 290 (280-300); Potassium 3.9 mEq/L (3.5-4.5); Sodium 139 mEq/L (136-145); Total Protein 5.6 g/dL (6.0-8.3); eGFR For African Americans > 60 (> 60); eGFR For Non-African Americans > 60 (> 60)
[2016-09-09] MEDS: Lisinopril 20 MG TABLET PO SCH (10:41)
[2016-09-09] MEDS: Aspirin 81 MG TAB.CHEW PO SCH (10:42)
[2016-09-09] MEDS: ARIPiprazole 5 MG TABLET PO SCH (10:42)
--- NOTE | 2016-09-09 12:53 | Internal Med Progress Note ---
Date of Encounter: 09/09/16 Time of Encounter: 12:51 - Assessment and plan (1) Common bile duct (CBD) obstruction Current Visit: Yes Status: Acute Assessment and plan: patient noted to have large CBD stone>1cm; GI on board, failed attempt at ERCP due to abnormal anatomy/diverticulum in the duct; recommend to monitor, may require referral to tertiary care center for ERCP and stone removal. Improving LFTs; asymptomatic; continue IV antibiotics;diet as tolerated; (2) Gram-negative bacteremia Current Visit: Yes Status: Acute Assessment and plan: due to biliary etiology and obstructive jaundice; will change antibiotics to iV Levaquin; blood cultures grow Klebsiella, pansensitive; repeat blood cultures so far negative; (3) Obstructive jaundice Current Visit: Yes Status: Acute Assessment and plan: plan as above; (4) Bipolar disorder Current Visit: Yes Status: Chronic Qualifiers: Active/Remission status: remission status unspecified Qualified Code(s): F31.9 - Bipolar disorder, unspecified (5) COPD (chronic obstructive pulmonary disease) Current Visit: Yes Status: Chronic Qualifiers: COPD type: unspecified COPD Qualified Code(s): J44.9 - Chronic obstructive pulmonary disease, unspecified (6) Dementia Current Visit: Yes Status: Chronic Qualifiers: Dementia type: Alzheimer's disease Alzheimer's disease onset: late-onset Dementia behavioral disturbance: without behavioral disturbance Qualified Code (s): G30.1 - Alzheimer's disease with late onset; F02.80 - Dementia in other diseases classified elsewhere without behavioral disturbance - Subjective Interval history: Reports feeling well. No nausea, vomiting, has bowel movement since surgery. Tolerates clear liquid diet. No abdominal pain. - Constitutional Vitals: Temp Pulse Resp BP Pulse Ox 97.4 F L 70 14 107/63 98 09/09/16 08:19 09/09/16 08:19 09/09/16 08:19 09/09/16 08:19 09/09/16 08:19 General appearance: Present: A&O X 2, answers questions appropriately - Respiratory Respiratory exam: Present: CTAB. Absent: accessory muscle use, rales, rhonchi, wheezes - Cardiovascular Cardiovascular exam: Present: RRR, +S1, +S2. Absent: diastolic murmur, gallop, rubs, systolic murmur - GI/Abdominal GI/Abdominal exam: Present: normal bowel sounds, soft, no peritoneal signs. Absent: distended, tenderness Internal Medicine: Result - Labs CBC & Chem 7: 09/13/16 04:29 09/13/16 03:36 Labs: BMP 09/09/16 06:40 Sodium 139 Potassium 3.9 Chloride 109 Carbon Dioxide 19 BUN 11 Creatinine 0.83 Glucose 145 H Calcium 8.2 L Liver Function 09/09/16 Range/Units 06:40 Total Bilirubin 1.6 H (0.2-1.2) mg/dL AST 53 H (5-34) Units/L ALT 60 H (0-55) Units/L Alkaline Phosphatase 661 H (38-126) Units/L Albumin 2.3 L (3.5-5.0) g/dL - ABG Interpretation ABG results: PT/INR, D-dimer PT 11.5 Seconds (9.4-12.1) 09/06/16 10:25 - Impressions Impressions Fluoroscopy 09/08/16 12:25 IMPRESSION: Intraprocedural fluoroscopic spot images as above. See separate procedure report for more information. D/ / David Deng MD / David Deng MD Interpreting Provider: David Deng MD - VTE Documentation of Mechanical Device: Intermittent pneumatic compression device Consult Discharge Plan - Plan Referrals: Mirza Lopez DO [Primary Care Provider] - (WEB REQUEST SENT ON 09/07/16 [facility] ) Prescriptions: Amlodipine [Norvasc] 5 mg PO DAILY 30 Days Cefdinir [Omnicef] 300 mg PO BID 7 Days
[2016-09-09] MEDS ORDERED: Levofloxacin 500 MG/100 ML 500 MG/100 ML BAG IVPB SCH (13:00)
[2016-09-09] MEDS ORDERED: Levofloxacin 500 MG/100 ML 500 MG/100 ML BAG IVPB ONE (13:15)
[2016-09-09] MEDS: Metoprolol XL (24 HR) Succ 25 MG TAB.ER.24H PO SCH (13:17)
[2016-09-10] MEDS: *HR* Enoxaparin 40 MG/0.4 ML SYRINGE SQ SCH (06:22)
[2016-09-10] MEDS: Lisinopril 20 MG TABLET PO SCH (07:59)
[2016-09-10] MEDS: Aspirin 81 MG TAB.CHEW PO SCH (07:59)
[2016-09-10] MEDS: Metoprolol XL (24 HR) Succ 25 MG TAB.ER.24H PO SCH (07:59)
[2016-09-10] MEDS: ARIPiprazole 5 MG TABLET PO SCH (07:59)
--- NOTE | 2016-09-10 09:30 | Electrocardiograph Report ---
[address] [place] [address] Test Date: 2016-09-09 Pat Name: Sherry Beard Department: 112 Room: [facility] Gender: F Campaign Worker: [id number] : 1930 Requested By: Spencer Kim Order Number: [id number] Reading MD: Christiano Bacon MD Measurements Intervals [place] Rate: 52 P: 58 RI: 190 QRS: 54 QRSD: 84 T: 95 QT: 458 QTc: 437 Interpretive Statements SINUS BRADYCARDIA Electronically Signed On 09-10-2016 9:28:54 EDT by Christiano Bacon MD
--- NOTE | 2016-09-10 09:48 | Gastroenterology Progress Note ---
<Jennifer Pan - Last Filed: 09/10/16 11:27> Date of Encounter: 09/10/16 Time of Encounter: 10:15 - Assessment and plan (1) Common bile duct (CBD) obstruction Current Visit: Yes Status: Acute Assessment and plan: ERCP 09/08/[address] Benitez, LFTs trending lower. (2) Elevated LFTs Current Visit: Yes Status: Acute Assessment and plan: LFTs improving s/p ERCP 09/08/16 - Time Spent With Patient Total time spent is greater than 50% in coordination of care (as documented) at patient's floor/unit and/or counseling patient: less than 15 minutes - Subjective Interval history: Pt s/p ERCP 09/08/16. States she is feeling good and her stomach has never hurt. She was resting comfortably in bed. - Constitutional Vitals: Temp Pulse Resp BP Pulse Ox 97.9 F 61 18 164/67 99 09/10/16 07:49 09/10/16 07:49 09/10/16 07:49 09/10/16 07:49 09/10/16 07:49 General appearance: Present: cooperative, A&O X 3, no acute distress, answers questions appropriately - Head Head exam: Present: atraumatic, normocephalic - Eye Eye exam: Present: scleral icterus - Neck Neck exam general surgery: Present: normal inspection, trachea midline - Respiratory Respiratory exam: Present: CTAB - Cardiovascular Cardiovascular exam: Present: RRR, +S1, +S2 - GI/Abdominal GI/Abdominal exam: Present: normal bowel sounds, soft, no peritoneal signs - Rectal Rectal exam: Present: deferred - Extremities Exam Extremities exam: Present: warm - Neurological Exam Neurological exam: Present: no focal deficits - Psychiatric Psychiatric exam: Present: normal affect, normal mood - Skin Skin exam: Present: dry, intact, normal color, warm Results - Labs CBC & Chem 7: 09/08/16 06:20 09/09/16 06:40 Labs: Last Result Calcium 8.2 mg/dL (8.6-10.8) L 09/09/16 06:40 Troponin I 0.01 ng/mL (0-0.03) 09/06/16 10:25 Urine Opiates Screen Negative ng/mL (Jgginu=583) 09/06/16 10:35 Entire Visit Hgb 10.1 g/dL (11.5-15.4) L D 09/08/16 06:20 Hct 30.9 % (35.3-44.9) L 09/08/16 06:20 PT 11.5 Seconds (9.4-12.1) 09/06/16 10:25 Total Bilirubin 1.6 mg/dL (0.2-1.2) H 09/09/16 06:40 AST 53 Units/L (5-34) H 09/09/16 06:40 ALT 60 Units/L (0-55) H 09/09/16 06:40 Ammonia 19 mcmol/L (18-72) 09/06/16 11:56 Lipase 39 Units/L (8-78) 09/06/16 10:25 E. coli (PCR) Not Detected (Not Detect) 09/06/16 11:56 - ABG ABG results: PT/INR, D-dimer PT 11.5 Seconds (9.4-12.1) 09/06/16 10:25 - VTE Documentation of Mechanical Device: Intermittent pneumatic compression device Consult Discharge Plan - Plan Referrals: Mirza Lopez DO [Primary Care Provider] - (WEB REQUEST SENT ON 09/07/16 [facility] ) <Merlin Benitez - Last Filed: 09/10/16 17:10> Date of Encounter: 09/10/16 Time of Encounter: 13:00 - Time Spent With Patient Total time spent is greater than 50% in coordination of care (as documented) at patient's floor/unit and/or counseling patient: - Constitutional Vitals: Temp Pulse Resp BP Pulse Ox 98.6 F 73 18 168/71 98 09/10/16 16:07 09/10/16 16:07 09/10/16 16:07 09/10/16 16:07 09/10/16 16:07 Results - Labs CBC & Chem 7: 09/08/16 06:20 09/09/16 06:40 Labs: Last Result Calcium 8.2 mg/dL (8.6-10.8) L 09/09/16 06:40 Troponin I 0.01 ng/mL (0-0.03) 09/06/16 10:25 Urine Opiates Screen Negative ng/mL (Qyzwtn=342) 09/06/16 10:35 Entire Visit Hgb 10.1 g/dL (11.5-15.4) L D 09/08/16 06:20 Hct 30.9 % (35.3-44.9) L 09/08/16 06:20 PT 11.5 Seconds (9.4-12.1) 09/06/16 10:25 Total Bilirubin 1.6 mg/dL (0.2-1.2) H 09/09/16 06:40 AST 53 Units/L (5-34) H 09/09/16 06:40 ALT 60 Units/L (0-55) H 09/09/16 06:40 Ammonia 19 mcmol/L (18-72) 09/06/16 11:56 Lipase 39 Units/L (8-78) 09/06/16 10:25 E. coli (PCR) Not Detected (Not Detect) 09/06/16 11:56 - ABG ABG results: PT/INR, D-dimer PT 11.5 Seconds (9.4-12.1) 09/06/16 10:25 - Attending Attestation I examined this patient and my medical decision-making was reviewed with the CAT SWAMPER/PA/Advanced Practice Nurse/Resident Physician. I agree with the documented findings, disposition and treatment plan as described except to the extent set forth below. Repeat ERCP on saturday
[2016-09-10] MEDS ORDERED: Levofloxacin 250 MG/50 ML 250 MG/50 ML BAG IVPB SCH (13:00)
[2016-09-11 05:14] LABS: Alanine Aminotransferase 73 Units/L (0-55); Albumin 2.4 g/dL (3.5-5.0); Albumin/Globulin Ratio 0.8 (1.1-2.2); Alkaline Phosphatase 830 Units/L (38-126); Aspartate Amino Transferase 97 Units/L (5-34); BUN/Creatinine Ratio 14 (6-26); Bilirubin,Total 1.8 mg/dL (0.2-1.2); Blood Urea Nitrogen 10 mg/dL (7-20); Calcium 8.6 mg/dL (8.6-10.8); Carbon Dioxide 24 mEq/L (19-29); Chloride 108 mEq/L (98-109); Globulin 3.1 g/dL (2.4-3.5); Glucose 87 mg/dL (70-99); Osmolality,Calculated 294 (280-300); Potassium 4.3 mEq/L (3.5-4.5); Sodium 143 mEq/L (136-145); Total Protein 5.5 g/dL (6.0-8.3); eGFR For African Americans > 60 (> 60); eGFR For Non-African Americans > 60 (> 60)
[2016-09-11] MEDS: *HR* Enoxaparin 40 MG/0.4 ML SYRINGE SQ SCH (06:29)
[2016-09-11] MEDS: amLODIPine 5 MG TABLET PO SCH (06:34)
[2016-09-11] MEDS: Aspirin 81 MG TAB.CHEW PO SCH (09:37)
[2016-09-11] MEDS: ARIPiprazole 5 MG TABLET PO SCH (09:37)
[2016-09-11] MEDS: Metoprolol XL (24 HR) Succ 25 MG TAB.ER.24H PO SCH (09:37)
[2016-09-11] MEDS: Lisinopril 20 MG TABLET PO SCH (09:38)
--- NOTE | 2016-09-11 15:43 | Internal Med Progress Note ---
<Booker Badillo - Last Filed: 09/11/16 15:40> Date of Encounter: 09/11/16 Time of Encounter: 10:00 - Assessment and plan (1) Bacteremia Current Visit: Yes Status: Acute Assessment and plan: GN bacteremia with Klebsiella Pneumonia. Source is likely from gallbladder and obstructed stone. S/P ERCP with repeat on 09/12/16 Continue Rocephin. she will need a total of 2 weeks of antibiotics. Currently afebrile and has a normal WBC. Hemodynamically stable and mentation improving. (2) Common bile duct (CBD) obstruction Current Visit: Yes Status: Acute Assessment and plan: Gi following. Had ERCP 09/08/16 will have repeat ERCP on 09/12/16 Bilirubin and LFTs trending down. (3) Altered mental status Current Visit: Yes Status: Acute Assessment and plan: improving. patient Alert and orientated to person place, time and situation this AM. Qualifiers: Altered mental status type: disorientation Qualified Code(s): R41.0 - Disorientation, unspecified (4) Elevated LFTs Current Visit: Yes Status: Acute Assessment and plan: obstructive trending down. continue to follow. (5) Dementia Current Visit: Yes Status: Chronic Qualifiers: Dementia type: Alzheimer's disease Alzheimer's disease onset: late-onset Dementia behavioral disturbance: without behavioral disturbance Qualified Code (s): G30.1 - Alzheimer's disease with late onset; F02.80 - Dementia in other diseases classified elsewhere without behavioral disturbance (6) Obstructive jaundice Current Visit: Yes Status: Acute (7) Bipolar disorder Current Visit: Yes Status: Chronic Assessment and plan: continue abilify. Qualifiers: Active/Remission status: remission status unspecified Qualified Code(s): F31.9 - Bipolar disorder, unspecified (8) Hypertension Current Visit: Yes Status: Acute Assessment and plan: currently above goal. continue home medications. Will add PRN hydralazine. (9) DVT prophylaxis Current Visit: Yes Status: Acute Assessment and plan: on lovenox. - Subjective Interval history: No major events overnight. The patient denies any chest pain, shortness of breath, abdominal pain. She states she is eating well and having normal bowel bladder function. She denies any pain or discomfort this Am . she has no further complaints or concerns at this time. - Constitutional Vitals: Temp Pulse Resp BP Pulse Ox 97.5 F L 69 16 147/65 99 09/11/16 10:56 09/11/16 10:56 09/11/16 10:56 09/11/16 10:56 09/11/16 13:46 General appearance: Present: A&O X 3, pleasant - Head Head exam: Present: atraumatic, normocephalic - Eye Eye exam: Present: PERRL, conjuntiva pink, sclera anicteric Pupils: Present: PERRL - Neck Neck exam general surgery: Present: supple, trachea midline. Absent: lymphadenopathy - Respiratory Respiratory exam: Present: CTAB. Absent: accessory muscle use, rales, rhonchi, wheezes - Cardiovascular Cardiovascular exam: Present: RRR, +S1, +S2. Absent: diastolic murmur, gallop, rubs, systolic murmur - GI/Abdominal GI/Abdominal exam: Present: normal bowel sounds, soft, no peritoneal signs. Absent: distended, tenderness - Extremities Exam Extremities exam: Present: warm, radial pulses palpable and symetrical. Absent : calf tenderness, cyanotic, pedal edema - Skin Skin exam: Present: dry, intact Internal Medicine: Result - Labs CBC & Chem 7: 09/08/16 06:20 09/11/16 04:04 Labs: BMP 09/11/16 04:04 Sodium 143 Potassium 4.3 Chloride 108 Carbon Dioxide 24 BUN 10 Creatinine 0.71 Glucose 87 Calcium 8.6 Liver Function 09/11/16 Range/Units 04:04 Total Bilirubin 1.8 H (0.2-1.2) mg/dL AST 97 H (5-34) Units/L ALT 73 H (0-55) Units/L Alkaline Phosphatase 830 H (38-126) Units/L Albumin 2.4 L (3.5-5.0) g/dL - ABG Interpretation ABG results: PT/INR, D-dimer PT 11.5 Seconds (9.4-12.1) 09/06/16 10:25 - VTE Documentation of Mechanical Device: Intermittent pneumatic compression device Consult Discharge Plan - Plan Referrals: Mirza Lopez DO [Primary Care Provider] - (WEB REQUEST SENT ON 09/07/16 [facility] ) <Maximiliano Tijerina - Last Filed: 09/11/16 17:03> Date of Encounter: 09/11/16 - Constitutional Vitals: Temp Pulse Resp BP Pulse Ox 97.5 F L 69 16 147/65 99 09/11/16 10:56 09/11/16 10:56 09/11/16 10:56 09/11/16 10:56 09/11/16 13:46 Internal Medicine: Result - Labs CBC & Chem 7: 09/08/16 06:20 09/11/16 04:04 Labs: BMP 09/11/16 04:04 Sodium 143 Potassium 4.3 Chloride 108 Carbon Dioxide 24 BUN 10 Creatinine 0.71 Glucose 87 Calcium 8.6 Liver Function 09/11/16 Range/Units 04:04 Total Bilirubin 1.8 H (0.2-1.2) mg/dL AST 97 H (5-34) Units/L ALT 73 H (0-55) Units/L Alkaline Phosphatase 830 H (38-126) Units/L Albumin 2.4 L (3.5-5.0) g/dL - ABG Interpretation ABG results: PT/INR, D-dimer PT 11.5 Seconds (9.4-12.1) 09/06/16 10:25 - Attending Attestation I examined this patient and my medical decision-making was reviewed with the MASSAGE THERAPY INSTRUCTOR/PA/Advanced Practice Nurse/Resident Physician. I agree with the documented findings, disposition and treatment plan as described except to the extent set forth below. ERCP tomorrow, follow LFTs, Continue iv rocephin.
[2016-09-12 05:11] LABS: Basophils # 0.1 K/mcL (0.0-0.2); Basophils % 0.8 %; Eosinophils # 0.3 K/mcL (0.0-0.6); Eosinophils % 4.4 %; Hematocrit 34.8 % (35.3-44.9); Hemoglobin 11.6 g/dL (11.5-15.4); Immature Granulocytes % 0.1 % (0-4); Lymphocytes # 1.4 K/mcL (0.6-4.6); Lymphocytes % 19.4 %; Mean Corpuscular HGB Conc 33.3 g/dL (31.6-35.5); Mean Corpuscular Hemoglobin 32.5 pg (28.0-33.3); Mean Corpuscular Volume 97.5 fL (83.0-100.0); Mean Platelet Volume 10.2 fL (9.4-12.4); Monocytes # 0.6 K/mcL (0.0-1.3); Monocytes % 8.4 %; Neutrophils # 4.8 K/mcL (1.6-8.9); Platelet Count 240 K/mcL (140-400); Red Blood Count 3.57 M/mcL (3.82-4.97); Red Cell Distribution Width 13.8 % (11.5-14.5); Segmented Neutrophils % 66.9 %
[2016-09-12 05:27] LABS: Alanine Aminotransferase 79 Units/L (0-55); Albumin 2.5 g/dL (3.5-5.0); Albumin/Globulin Ratio 0.7 (1.1-2.2); Alkaline Phosphatase 760 Units/L (38-126); Aspartate Amino Transferase 100 Units/L (5-34); BUN/Creatinine Ratio 16 (6-26); Bilirubin,Total 1.6 mg/dL (0.2-1.2); Blood Urea Nitrogen 12 mg/dL (7-20); Calcium 8.3 mg/dL (8.6-10.8); Carbon Dioxide 28 mEq/L (19-29); Chloride 104 mEq/L (98-109); Globulin 3.4 g/dL (2.4-3.5); Glucose 98 mg/dL (70-99); Osmolality,Calculated 288 (280-300); Potassium 3.5 mEq/L (3.5-4.5); Sodium 139 mEq/L (136-145); Total Protein 5.9 g/dL (6.0-8.3); eGFR For African Americans > 60 (> 60); eGFR For Non-African Americans > 60 (> 60)
[2016-09-12] MEDS: *HR* Enoxaparin 40 MG/0.4 ML SYRINGE SQ SCH (06:41)
[2016-09-12] MEDS: Aspirin 81 MG TAB.CHEW PO SCH (09:54)
[2016-09-12] MEDS: amLODIPine 5 MG TABLET PO SCH (09:54)
[2016-09-12] MEDS: Lisinopril 20 MG TABLET PO SCH (09:55)
[2016-09-12] MEDS: Metoprolol XL (24 HR) Succ 25 MG TAB.ER.24H PO SCH (09:55)
[2016-09-12] MEDS: ARIPiprazole 5 MG TABLET PO SCH (09:56)
[2016-09-12] MEDS ORDERED: Ondansetron 4 MG/2 ML VIAL IVP ONE (12:17)
[2016-09-12] MEDS ORDERED: *HR* Propofol 200 MG/20 ML VIAL IVP ONE (12:17)
[2016-09-12] MEDS ORDERED: Lidocaine -MPF 4% 5 ML AMPUL TP ONE (12:17)
[2016-09-12] MEDS ORDERED: Lidocaine -MPF 2% 5 ML VIAL INFILT ONE (12:17)
--- NOTE | 2016-09-12 13:34 | Anesthesia Evaluation PreOp ---
Date of Encounter: 09/12/16 Time of Encounter: 13:32 - Past History Planned Operation: ERCP Cardiac History: HTN (maintained on Lisinopril, Metoprolol) Pulmonary History: Denies Any Significant HX OPERATIONS TRAINER History: Denies Any Significant HX, Other (Anxiety/depression maintained on Abilify. Dementia) Other Medical History: Denies Any Significant HX Anesthesia History: No Prior Anesthetic Complications, Past Anesthesia ([place], ERCP 09/08/2016) Alcohol Use: none Drug use: unknown Medications and Allergies Aripiprazole [Abilify] 15 mg PO QAM 02/22/16 [History] Aspirin 81 mg PO DAILY 02/22/16 [History] Cholecalciferol (Vitamin D3) [Vitamin D3] 2,000 unit PO DAILY 02/22/16 [History] Cyanocobalamin (Vitamin B-12) [Vitamin B-12] 500 mcg SL MOWEFR 02/22/16 [History ] Docusate Sodium [Dok] 100 mg PO DAILY 02/22/16 [History] Lisinopril [Zestril] 20 mg PO DAILY 02/22/16 [History] Multivitamin [Multivitamins] 1 each PO DAILY 02/22/16 [History] Metoprolol XL (24 HR) Succ [Toprol XL] 25 mg PO BID 09/06/16 [History] Vit C/Vit E/Lutein/Min/Flushing-3 [Ocuvite Softgel] 1 cap PO DAILY 09/06/16 [ History] Allergies ibandronate sodium [From Boniva] Adverse Reaction (Intermediate, Verified 12:28) See Comments trazodone Adverse Reaction (Verified 02/23/16 12:27) Nightmare - Meds/Allergy Pre-op Review Medications Reviewed: Yes Allergies Reviewed: Yes Beta Blockers on Current Med List: Yes (Metoprolol) If Beta Blockers taken, Date/Time (Last Dose taken): 09/12/2016 @ 0955 Anesthesia Results - Labs 09/12/16 05:00 09/12/16 05:00 Laboratory Results WBC 7.2 K/mcL (4.3-11.1) 09/12/16 05:00 RBC 3.57 M/mcL (3.82-4.97) L 09/12/16 05:00 Hgb 11.6 g/dL (11.5-15.4) D 09/12/16 05:00 Hct 34.8 % (35.3-44.9) L 09/12/16 05:00 MCV 97.5 fL (83.0-100.0) 09/12/16 05:00 MCH 32.5 pg (28.0-33.3) 09/12/16 05:00 MCHC 33.3 g/dL (31.6-35.5) 09/12/16 05:00 RDW 13.8 % (11.5-14.5) 09/12/16 05:00 Plt Count 240 K/mcL (140-400) 09/12/16 05:00 MPV 10.2 fL (9.4-12.4) 09/12/16 05:00 Immature Gran % 0.1 % (0-4) 09/12/16 05:00 Seg Neutrophils % 66.9 % 09/12/16 05:00 Lymphocytes % 19.4 % 09/12/16 05:00 Monocytes % 8.4 % 09/12/16 05:00 Eosinophils % 4.4 % 09/12/16 05:00 Basophils % 0.8 % 09/12/16 05:00 Neutrophils # 4.8 K/mcL (1.6-8.9) 09/12/16 05:00 Lymphocytes # 1.4 K/mcL (0.6-4.6) 09/12/16 05:00 Monocytes # 0.6 K/mcL (0.0-1.3) 09/12/16 05:00 Eosinophils # 0.3 K/mcL (0.0-0.6) 09/12/16 05:00 Basophils # 0.1 K/mcL (0.0-0.2) 09/12/16 05:00 PT 11.5 Seconds (9.4-12.1) 09/06/16 10:25 INR 1.1 09/06/16 10:25 APTT 28.8 Seconds (26.0-36.0) 09/06/16 10:25 Sodium 139 mEq/L (136-145) 09/12/16 05:00 Potassium 3.5 mEq/L (3.5-4.5) 09/12/16 05:00 Chloride 104 mEq/L (98-109) 09/12/16 05:00 Carbon Dioxide 28 mEq/L (19-29) 09/12/16 05:00 BUN 12 mg/dL (7-20) 09/12/16 05:00 Creatinine 0.73 mg/dL (0.57-1.11) 09/12/16 05:00 Est GFR ( Amer) > 60 (> 60) 09/12/16 05:00 Est GFR (Non-Af Amer) > 60 (> 60) 09/12/16 05:00 BUN/Creatinine Ratio 16 (6-26) 09/12/16 05:00 Glucose 98 mg/dL (70-99) 09/12/16 05:00 POC Glucose 106 (58-89) H 09/06/16 10:12 Calculated Osmolality 288 (280-300) 09/12/16 05:00 Calcium 8.3 mg/dL (8.6-10.8) L 09/12/16 05:00 Total Bilirubin 1.6 mg/dL (0.2-1.2) H 09/12/16 05:00 Direct Bilirubin 1.0 mg/dL (0.0-0.5) H 09/12/16 05:00 Indirect Bilirubin 0.9 mg/dL (0.0-1.2) 09/07/16 04:28 AST 100 Units/L (5-34) H 09/12/16 05:00 ALT 79 Units/L (0-55) H 09/12/16 05:00 Alkaline Phosphatase 760 Units/L (38-126) H 09/12/16 05:00 Ammonia 19 mcmol/L (18-72) 09/06/16 11:56 Troponin I 0.01 ng/mL (0-0.03) 09/06/16 10:25 Serum Total Protein 5.9 g/dL (6.0-8.3) L 09/12/16 05:00 Albumin 2.5 g/dL (3.5-5.0) L 09/12/16 05:00 Globulin 3.4 g/dL (2.4-3.5) 09/12/16 05:00 Albumin/Globulin Ratio 0.7 (1.1-2.2) L 09/12/16 05:00 Lipase 39 Units/L (8-78) 09/06/16 10:25 Urine Color Schley (Yellow) A 09/06/16 10:35 Urine Clarity Clear (Clear) 09/06/16 10:35 Urine pH 6.0 pH Units (5.0-8.0) 09/06/16 10:35 Ur Specific [place] 1.022 (1.010-1.025) 09/06/16 10:35 Urine Protein Negative mg/dL (Neg-Trace) 09/06/16 10:35 Urine Glucose (UA) Normal mg/dL (Normal) 09/06/16 10:35 Urine Ketones Trace mg/dL (Negative) H 09/06/16 10:35 Urine Blood Negative (Negative) 09/06/16 10:35 Urine Nitrite Negative (Negative) 09/06/16 10:35 Urine Bilirubin Moderate (Negative) H 09/06/16 10:35 Urine Urobilinogen 4.0 mg/dL (Normal) H 09/06/16 10:35 Ur Leukocyte Esterase Trace (Negative) H 09/06/16 10:35 Urine Microscopic RBC 0-3 per hpf (0-3) 09/06/16 10:35 Urine Microscopic WBC 0-3 per hpf (0-3) 09/06/16 10:35 Ur Squamous Epith Cells Moderate per lpf (None-Few) H 09/06/16 10:35 Urine Bacteria None Seen per hpf (None-Few) 09/06/16 10:35 Hyaline Casts None Seen per lpf (None-Few) 09/06/16 10:35 Ur Culture Indicated? YES (NO) A 09/06/16 10:35 Urine Opiates Screen Negative ng/mL (Dqbfzj=107) 09/06/16 10:35 Ur Barbiturates Screen Negative ng/mL (Kysbgk=832) 09/06/16 10:35 Ur Phencyclidine Scrn Negative ng/mL (Cutoff=25) 09/06/16 10:35 Ur Amphetamines Screen Negative ng/mL (Upagxd=9793) 09/06/16 10:35 U Benzodiazepines Scrn Negative ng/mL (Yidtds=228) 09/06/16 10:35 Urine Cocaine Screen Negative ng/mL (Cutoff= 300) 09/06/16 10:35 U Marijuana (THC) Screen Negative ng/mL (Cutoff = 50) 09/06/16 10:35 A. baumannii (PCR) Not Detected (Not Detect) 09/06/16 11:56 Kiana albicans (PCR) Not Detected (Not Detect) 09/06/16 11:56 C. glabrata (PCR) Not Detected (Not Detect) 09/06/16 11:56 C. krusei (PCR) Not Detected (Not Detect) 09/06/16 11:56 C. parapsilosis (PCR) Not Detected (Not Detect) 09/06/16 11:56 C. tropicalis (PCR) Not Detected (Not Detect) 09/06/16 11:56 Enterobacteriac sp PCR DETECTED (Not Detect) A 09/06/16 11:56 E. cloacae complex PCR Not Detected (Not Detect) 09/06/16 11:56 Enterococcus sp PCR Not Detected (Not Detect) 09/06/16 11:56 E. coli (PCR) Not Detected (Not Detect) 09/06/16 11:56 H. influenzae (PCR) Not Detected (Not Detect) 09/06/16 11:56 Klebsiella oxytoca PCR Not Detected (Not Detect) 09/06/16 11:56 Klebsiella pneumoniae DETECTED (Not Detect) A 09/06/16 11:56 List. monocytogenes PCR Not Detected (Not Detect) 09/06/16 11:56 N. meningitidis (PCR) Not Detected (Not Detect) 09/06/16 11:56 Proteus species (PCR) Not Detected (Not Detect) 09/06/16 11:56 Serratia marcescens PCR Not Detected (Not Detect) 09/06/16 11:56 Staphylococcus sp PCR Not Detected (Not Detect) 09/06/16 11:56 Staph aureus (PCR) Not Detected (Not Detect) 09/06/16 11:56 mecA-Methicil Res Gene N/A (Not Detect) 09/06/16 11:56 Streptococcus sp PCR Not Detected (Not Detect) 09/06/16 11:56 Group A Strep DNA Not Detected (Not Detect) 09/06/16 11:56 Group B Strep (PCR) Not Detected (Not Detect) 09/06/16 11:56 Strep pneumoniae (PCR) Not Detected (Not Detect) 09/06/16 11:56 P. aeruginosa (PCR) Not Detected (Not Detect) 09/06/16 11:56 Hardy/B-Vanco Res Genes N/A (Not Detect) 09/06/16 11:56 KPC (blaKPC) Detect PCR Not Detected (Not Detect) 09/06/16 11:56 Impressions Chest X-Ray 09/06/16 10:08 IMPRESSION: Retrocardiac infiltrate which could represent atelectasis or pneumonia. D/ / Storm Keller MD / Storm Keller MD Interpreting Provider: Storm Keller MD Head CT 09/06/16 10:09 IMPRESSION: No acute intracranial abnormality. Stable exam with findings compatible with mild age related atrophy and likely chronic small vessel ischemic change. D/ / Nabeel Lopez MD / Nabeel Lopez MD Interpreting Provider: Nabeel Lopez MD Abdomen/Pelvis CT 09/06/16 11:03 IMPRESSION: 1. There is intrahepatic and extrahepatic biliary ductal dilatation with the common bile duct measuring up to 15 mm. There appears to be a soft tissue attenuation filling defect within the distal CBD in the region of the ampulla. Consider further evaluation with MRI/MRCP. 2. A small amount of fluid is seen within the colon, which can be seen with diarrhea. 3. Otherwise, no acute abnormality identified within the abdomen or pelvis. D/ / Loco Brand MD / Loco Brand MD Interpreting Provider: Loco Brand MD Abdomen MRI 09/06/16 14:06 IMPRESSION: 1. Moderate intra and extrahepatic biliary dilatation secondary to a large obstructing stone in the distal common bile duct measuring 14 x 11 mm. 2. Pancreatic divisum without ductal dilatation. 3. Small hiatal hernia. 4. Status post cholecystectomy. D/ / 09/06/2016 17:18:52 Simran Archer MD / [facility] Interpreting Provider: Simran Archer MD Fluoroscopy 09/08/16 12:25 IMPRESSION: Intraprocedural fluoroscopic spot images as above. See separate procedure report for more information. D/ / David Deng MD / David Deng MD Interpreting Provider: David Deng MD - Imaging EKG: image reviewed (52bpm SB) Anesthesia Exam Vital Signs Temp Pulse Resp BP Pulse Ox 09/12/16 11:15 97.5 F L 69 18 146/71 99 09/12/16 06:56 97.5 F L 67 16 145/66 99 09/12/16 05:28 97.6 F 70 16 170/69 98 09/12/16 00:21 97.6 F 65 16 144/70 99 09/11/16 13:46 99 Intake and Output 09/11/16 09/12/16 09/12/16 23:59 07:59 15:59 Output Total 200 / 200 200 / 200 Balance -200 / -200 -200 / -200 Output: Urine 200 / 200 200 / 200 Other: Meal npo Percent of Meal Consumed 0% # Voids 1 1 # Bowel Movements 1 - HEENT Pupil (Motor): Pupils equal, EOMI Mallampati: III (small recessed chin) Teeth: Poor dentition Oral Opening: Greater than 3 - OPERATIONS TRAINER LOC: Oriented OPERATIONS TRAINER Motor: Normal RUE, Normal LUE, Normal RLE, Normal LLE, Normal Face OPERATIONS TRAINER Sensory: Normal: RUE, LUE, RLE, LLE, Face - Cardiac Rhythm: Regular Murmur: None - Pulmonary Breath Sounds: bilateral Clear Respiratory Effort: Symmetrical Anesthesia Assess/Plan ASA Score: 3 (Dementia, HTN, Anxiety/depression)
[2016-09-12] MEDS ORDERED: Ringers Solution, Lactated 1,000 ML IVC SCH (13:45)
[2016-09-12] MEDS ORDERED: *HR* FentaNYL (PF) 100 MCG/2 ML VIAL ONE (13:53)
--- NOTE | 2016-09-12 13:54 | Internal Med Progress Note ---
<Booker Badillo - Last Filed: 09/12/16 13:49> Date of Encounter: 09/12/16 Time of Encounter: 08:35 - Assessment and plan (1) Bacteremia Current Visit: Yes Status: Acute Assessment and plan: GN bacteremia with Klebsiella Pneumonia. Source is likely from gallbladder and obstructed stone. S/P ERCP with repeat on 09/12/16 Continue Rocephin. she will need a total of 2 weeks of antibiotics. Currently afebrile and has a normal WBC. Hemodynamically stable and mentation improving. (2) Common bile duct (CBD) obstruction Current Visit: Yes Status: Acute Assessment and plan: Gi following. Had ERCP 09/08/16 will have repeat ERCP on 09/12/16 Bilirubin and LFTs trending down. (3) Altered mental status Current Visit: Yes Status: Acute Assessment and plan: improving. patient Alert and orientated to person place, time and situation this AM. Qualifiers: Altered mental status type: disorientation Qualified Code(s): R41.0 - Disorientation, unspecified (4) Elevated LFTs Current Visit: Yes Status: Acute Assessment and plan: obstructive trending down. continue to follow. (5) Dementia Current Visit: Yes Status: Chronic Qualifiers: Dementia type: Alzheimer's disease Alzheimer's disease onset: late-onset Dementia behavioral disturbance: without behavioral disturbance Qualified Code (s): G30.1 - Alzheimer's disease with late onset; F02.80 - Dementia in other diseases classified elsewhere without behavioral disturbance (6) Obstructive jaundice Current Visit: Yes Status: Acute (7) Bipolar disorder Current Visit: Yes Status: Chronic Assessment and plan: continue abilify. Qualifiers: Active/Remission status: remission status unspecified Qualified Code(s): F31.9 - Bipolar disorder, unspecified (8) Hypertension Current Visit: Yes Status: Acute Assessment and plan: currently above goal. continue home medications. continue PRN hydralazine. (9) DVT prophylaxis Current Visit: Yes Status: Acute Assessment and plan: on lovenox. - Subjective Interval history: No major events overnight. This morning patient still states that she is feeling better. She denies any pain or discomfort. Denies any dyspnea. Denies chest pain. She has no further complaints or concerns at this time. Schedule for ERCP later today. - Constitutional Vitals: Temp Pulse Resp BP Pulse Ox 99.2 F 68 18 173/75 98 09/12/16 13:37 09/12/16 13:37 09/12/16 13:37 09/12/16 13:37 09/12/16 13:37 General appearance: Present: A&O X 2 (Some confusion about time this morning.), pleasant - Head Head exam: Present: atraumatic, normocephalic - Eye Eye exam: Present: PERRL, conjuntiva pink, sclera anicteric Pupils: Present: PERRL - Neck Neck exam general surgery: Present: supple, trachea midline. Absent: lymphadenopathy - Respiratory Respiratory exam: Present: CTAB. Absent: accessory muscle use, rales, rhonchi, wheezes - Cardiovascular Cardiovascular exam: Present: RRR, +S1, +S2. Absent: diastolic murmur, gallop, rubs, systolic murmur - GI/Abdominal GI/Abdominal exam: Present: normal bowel sounds, soft, no peritoneal signs. Absent: distended, tenderness - Extremities Exam Extremities exam: Present: warm, radial pulses palpable and symetrical. Absent : calf tenderness, cyanotic, pedal edema - Skin Skin exam: Present: dry, intact Internal Medicine: Result - Labs CBC & Chem 7: 09/12/16 05:00 09/12/16 05:00 Labs: Short CBC 09/12/16 Range/Units 05:00 WBC 7.2 (4.3-11.1) K/mcL Hgb 11.6 D (11.5-15.4) g/dL Hct 34.8 L (35.3-44.9) % Plt Count 240 (140-400) K/mcL Neutrophils # 4.8 (1.6-8.9) K/mcL BMP 09/12/16 05:00 Sodium 139 Potassium 3.5 Chloride 104 Carbon Dioxide 28 BUN 12 Creatinine 0.73 Glucose 98 Calcium 8.3 L Liver Function 09/12/16 Range/Units 05:00 Total Bilirubin 1.6 H (0.2-1.2) mg/dL Direct Bilirubin 1.0 H (0.0-0.5) mg/dL AST 100 H (5-34) Units/L ALT 79 H (0-55) Units/L Alkaline Phosphatase 760 H (38-126) Units/L Albumin 2.5 L (3.5-5.0) g/dL - ABG Interpretation ABG results: PT/INR, D-dimer PT 11.5 Seconds (9.4-12.1) 09/06/16 10:25 - VTE Documentation of Mechanical Device: Graduated compression elastic hosiery Consult Discharge Plan - Plan Referrals: Mirza Lopez DO [Primary Care Provider] - (WEB REQUEST SENT ON 09/07/16 This patient is from [facility] ) <Maximiliano Tijerina - Last Filed: 09/12/16 18:29> Date of Encounter: 09/12/16 - Constitutional Vitals: Temp Pulse Resp BP Pulse Ox 97.5 F L 76 16 182/74 98 09/12/16 15:20 09/12/16 16:10 09/12/16 16:10 09/12/16 16:10 09/12/16 16:10 Internal Medicine: Result - Labs CBC & Chem 7: 09/12/16 05:00 09/12/16 05:00 Labs: Short CBC 09/12/16 Range/Units 05:00 WBC 7.2 (4.3-11.1) K/mcL Hgb 11.6 D (11.5-15.4) g/dL Hct 34.8 L (35.3-44.9) % Plt Count 240 (140-400) K/mcL Neutrophils # 4.8 (1.6-8.9) K/mcL BMP 09/12/16 05:00 Sodium 139 Potassium 3.5 Chloride 104 Carbon Dioxide 28 BUN 12 Creatinine 0.73 Glucose 98 Calcium 8.3 L Liver Function 09/12/16 Range/Units 05:00 Total Bilirubin 1.6 H (0.2-1.2) mg/dL Direct Bilirubin 1.0 H (0.0-0.5) mg/dL AST 100 H (5-34) Units/L ALT 79 H (0-55) Units/L Alkaline Phosphatase 760 H (38-126) Units/L Albumin 2.5 L (3.5-5.0) g/dL - ABG Interpretation ABG results: PT/INR, D-dimer PT 11.5 Seconds (9.4-12.1) 09/06/16 10:25 - Attending Attestation I examined this patient and my medical decision-making was reviewed with the [employer]/PA/Advanced Practice Nurse/Resident Physician. I agree with the documented findings, disposition and treatment plan as described except to the extent set forth below. Follow GI input. monitor lfts.
[2016-09-12] MEDS ORDERED: Indomethacin 50 MG SUPP.RECT RC ONE (15:41)
--- NOTE | 2016-09-12 15:44 | Anesthesia Evaluation Post Op ---
Date of Encounter: 09/12/16 Time of Encounter: 15:40 - Vital Signs Vital Signs: Vital Signs/O2 Sat/Glucose, Most Current Temp Pulse Resp BP Pulse Ox 09/12/16 15:40 60 18 192/69 99 09/12/16 15:30 59 18 192/67 99 09/12/16 15:20 97.5 F L 56 16 167/57 99 09/12/16 15:10 97.9 F 55 10 100/45 100 09/12/16 13:37 99.2 F 68 18 173/75 98 - Lungs Lungs: Clear Ascult./Percussion - Airway Airway: Non-obstructed - Cardiovascular Regular Rate - Mental Status Mental Status: Alert & Oriented, Answers Appropriately - Pain Pain Scale: 0 - Nausea Vomiting Nausea Vomiting: Not Present - Hydration Hydration: NPO - Discharge PostOp Status: Transfer Patient to floor
--- NOTE | 2016-09-12 21:00 | Procedure Note ---
Date of procedure: 09/12/16 Procedure: ERCP: Large cBd stone removed
[2016-09-13 04:04] LABS: Alanine Aminotransferase 60 Units/L (0-55); Albumin 2.3 g/dL (3.5-5.0); Albumin/Globulin Ratio 0.7 (1.1-2.2); Alkaline Phosphatase 698 Units/L (38-126); Aspartate Amino Transferase 55 Units/L (5-34); BUN/Creatinine Ratio 23 (6-26); Bilirubin,Direct 0.9 mg/dL (0.0-0.5); Bilirubin,Indirect 0.2 mg/dL (0.0-1.2); Bilirubin,Total 1.1 mg/dL (0.2-1.2); Blood Urea Nitrogen 18 mg/dL (7-20); Calcium 8.7 mg/dL (8.6-10.8); Carbon Dioxide 25 mEq/L (19-29); Chloride 103 mEq/L (98-109); Globulin 3.4 g/dL (2.4-3.5); Glucose 116 mg/dL (70-99); Osmolality,Calculated 291 (280-300); Potassium 4.3 mEq/L (3.5-4.5); Sodium 139 mEq/L (136-145); Total Protein 5.7 g/dL (6.0-8.3); eGFR For African Americans > 60 (> 60); eGFR For Non-African Americans > 60 (> 60)
[2016-09-13 05:39] LABS: Basophils % 0.2 %; Hematocrit 36.6 % (35.3-44.9); Hemoglobin 12.1 g/dL (11.5-15.4); Immature Granulocytes % 0.9 % (0-4); Immature Platelets 3.7 % (1.1-6.1); Lymphocytes # 1.2 K/mcL (0.6-4.6); Lymphocytes % 20.6 %; Mean Corpuscular HGB Conc 33.1 g/dL (31.6-35.5); Mean Corpuscular Hemoglobin 32.4 pg (28.0-33.3); Mean Corpuscular Volume 97.9 fL (83.0-100.0); Mean Platelet Volume 10.6 fL (9.4-12.4); Monocytes # 0.2 K/mcL (0.0-1.3); Monocytes % 3.6 %; Neutrophils # 4.4 K/mcL (1.6-8.9); Platelet Count 305 K/mcL (140-400); Red Blood Count 3.74 M/mcL (3.82-4.97); Red Cell Distribution Width 13.4 % (11.5-14.5); Segmented Neutrophils % 74.7 %
[2016-09-13] MEDS: *HR* Enoxaparin 40 MG/0.4 ML SYRINGE SQ SCH (06:45)
[2016-09-13] MEDS: Aspirin 81 MG TAB.CHEW PO SCH (09:25)
[2016-09-13] MEDS: Metoprolol XL (24 HR) Succ 25 MG TAB.ER.24H PO SCH (09:25)
[2016-09-13] MEDS: amLODIPine 5 MG TABLET PO SCH (09:25)
[2016-09-13] MEDS: Lisinopril 20 MG TABLET PO SCH (09:25)
--- NOTE | 2016-09-13 10:22 | Gastroenterology Progress Note ---
<Jennifer Pan - Last Filed: 09/13/16 11:49> Date of Encounter: 09/13/16 Time of Encounter: 11:00 - Assessment and plan (1) Common bile duct (CBD) obstruction Current Visit: Yes Status: Acute Assessment and plan: ERCP repeated yesterday, large choledocholelithiasis removed. LFTs trending slightly lower. (2) Elevated LFTs Current Visit: Yes Status: Acute Assessment and plan: Trending lower. - Time Spent With Patient Total time spent is greater than 50% in coordination of care (as documented) at patient's floor/unit and/or counseling patient: less than 15 minutes - Subjective Interval history: ERCP yesterday with large choledocholelithiasis removed. LFTs starting to trend lower. Patient admits feeling well today. - Constitutional Vitals: Temp Pulse Resp BP Pulse Ox 97.5 F L 75 15 120/67 93 09/13/16 07:17 09/13/16 07:17 09/13/16 07:17 09/13/16 07:17 09/13/16 07:17 General appearance: Present: cooperative, A&O X 3, no acute distress, answers questions appropriately - Eye Eye exam: Present: normal appearance, sclera anicteric - ENT ENT exam: Present: mucous membranes moist - Neck Neck exam general surgery: Present: normal inspection, trachea midline - Respiratory Respiratory exam: Present: CTAB - Cardiovascular Cardiovascular exam: Present: RRR, +S1, +S2 - GI/Abdominal GI/Abdominal exam: Present: normal bowel sounds, soft, no peritoneal signs - Rectal Rectal exam: Present: deferred - Extremities Exam Extremities exam: Present: warm - Neurological Exam Neurological exam: Present: no focal deficits - Psychiatric Psychiatric exam: Present: normal affect, normal mood - Skin Skin exam: Present: dry, intact, normal color, warm Results - Labs CBC & Chem 7: 09/13/16 04:29 09/13/16 03:36 Labs: Last Result Calcium 8.7 mg/dL (8.6-10.8) 09/13/16 03:36 Troponin I 0.01 ng/mL (0-0.03) 09/06/16 10:25 Urine Opiates Screen Negative ng/mL (Qqlqoh=144) 09/06/16 10:35 Entire Visit Hgb 12.1 g/dL (11.5-15.4) 09/13/16 04:29 Hct 36.6 % (35.3-44.9) 09/13/16 04:29 PT 11.5 Seconds (9.4-12.1) 09/06/16 10:25 Total Bilirubin 1.1 mg/dL (0.2-1.2) 09/13/16 03:36 AST 55 Units/L (5-34) H 09/13/16 03:36 ALT 60 Units/L (0-55) H 09/13/16 03:36 Ammonia 19 mcmol/L (18-72) 09/06/16 11:56 Lipase 39 Units/L (8-78) 09/06/16 10:25 E. coli (PCR) Not Detected (Not Detect) 09/06/16 11:56 - ABG ABG results: PT/INR, D-dimer PT 11.5 Seconds (9.4-12.1) 09/06/16 10:25 - Impressions Impressions Cath/Invasive Procedure 09/12/16 13:55 IMPRESSION: Fluoroscopy provided for ERCP procedure. Please see the intraoperative note for complete details. D/ / 09/13/2016 07:53:38 Storm Souza MD / [facility] Interpreting Provider: Storm Souza MD - VTE Documentation of Mechanical Device: Graduated compression elastic hosiery Consult Discharge Plan - Plan Referrals: Mirza Lopez DO [Primary Care Provider] - (WEB REQUEST SENT ON 09/07/16 This patient is [facility].. ) <Merlin Benitez - Last Filed: 09/13/16 14:05> Date of Encounter: 09/13/16 - Time Spent With Patient Total time spent is greater than 50% in coordination of care (as documented) at patient's floor/unit and/or counseling patient: - Constitutional Vitals: Temp Pulse Resp BP Pulse Ox 98.4 F 80 15 125/58 92 09/13/16 12:22 09/13/16 12:22 09/13/16 12:22 09/13/16 12:22 09/13/16 12:22 Results - Labs CBC & Chem 7: 09/13/16 04:29 09/13/16 03:36 Labs: Last Result Calcium 8.7 mg/dL (8.6-10.8) 09/13/16 03:36 Troponin I 0.01 ng/mL (0-0.03) 09/06/16 10:25 Urine Opiates Screen Negative ng/mL (Aiauxg=593) 09/06/16 10:35 Entire Visit Hgb 12.1 g/dL (11.5-15.4) 09/13/16 04:29 Hct 36.6 % (35.3-44.9) 09/13/16 04:29 PT 11.5 Seconds (9.4-12.1) 09/06/16 10:25 Total Bilirubin 1.1 mg/dL (0.2-1.2) 09/13/16 03:36 AST 55 Units/L (5-34) H 09/13/16 03:36 ALT 60 Units/L (0-55) H 09/13/16 03:36 Ammonia 19 mcmol/L (18-72) 09/06/16 11:56 Lipase 39 Units/L (8-78) 09/06/16 10:25 E. coli (PCR) Not Detected (Not Detect) 09/06/16 11:56 - ABG ABG results: PT/INR, D-dimer PT 11.5 Seconds (9.4-12.1) 09/06/16 10:25 - Impressions Impressions Cath/Invasive Procedure 09/12/16 13:55 IMPRESSION: Fluoroscopy provided for ERCP procedure. Please see the intraoperative note for complete details. D/ / 09/13/2016 07:53:38 Storm Souza MD / [email or web address] Interpreting Provider: Storm Souza MD - Attending Attestation I examined this patient and my medical decision-making was reviewed with the [employer]/PA/Advanced Practice Nurse/Resident Physician. I agree with the documented findings, disposition and treatment plan as described except to the extent set forth below.
[2016-09-13] MEDS: ARIPiprazole 5 MG TABLET PO SCH (11:33)
--- NOTE | 2016-09-13 12:03 | Internal Med Progress Note ---
Date of Encounter: 09/08/16 Time of Encounter: 14:00 - Assessment and plan (1) Gram-negative bacteremia Current Visit: Yes Status: Acute Assessment and plan: Secondary to biliary etiology due to obstructive jaundice and common bile duct stone. Follow-up final complete blood culture reports, repeat cultures have been sent; Serology positive for Enterobacteriaceae and Klebsiella. Continue IV Zosyn. High risk for complications. (2) Common bile duct (CBD) obstruction Current Visit: Yes Status: Acute Assessment and plan: patient noted to have large CBD stone>1cm; Improving LFTs; asymptomatic; continue IV antibiotics; GI consult appreciated, plan for ERCP today for possible CBD stent vs stone removal; (3) Acute encephalopathy Current Visit: Yes Status: Resolved Assessment and plan: at baseline mental status today; does have underlying dementia; (4) Dementia Current Visit: Yes Status: Chronic Qualifiers: Dementia type: Alzheimer's disease Alzheimer's disease onset: late-onset Dementia behavioral disturbance: without behavioral disturbance Qualified Code (s): G30.1 - Alzheimer's disease with late onset; F02.80 - Dementia in other diseases classified elsewhere without behavioral disturbance (5) Bipolar disorder Current Visit: Yes Status: Chronic Qualifiers: Active/Remission status: remission status unspecified Qualified Code(s): F31.9 - Bipolar disorder, unspecified (6) COPD (chronic obstructive pulmonary disease) Current Visit: Yes Status: Chronic Qualifiers: COPD type: unspecified COPD Qualified Code(s): J44.9 - Chronic obstructive pulmonary disease, unspecified - Subjective Interval history: Denies abdominal pain, nausea, emesis, diarrhea; plan for ERCP today; - Constitutional Vitals: Temp Pulse Resp BP Pulse Ox 97.5 F L 75 15 120/67 93 09/13/16 07:17 09/13/16 07:17 09/13/16 07:17 09/13/16 07:17 09/13/16 07:17 General appearance: Present: A&O X 2 - Respiratory Respiratory exam: Present: CTAB. Absent: accessory muscle use, rales, rhonchi, wheezes - Cardiovascular Cardiovascular exam: Present: RRR, +S1, +S2. Absent: diastolic murmur, gallop, rubs, systolic murmur - GI/Abdominal GI/Abdominal exam: Present: normal bowel sounds, soft, no peritoneal signs. Absent: distended, tenderness Internal Medicine: Result - Labs CBC & Chem 7: 09/13/16 04:29 09/13/16 03:36 Labs: Short CBC 09/13/16 Range/Units 04:29 WBC 5.9 (4.3-11.1) K/mcL Hgb 12.1 (11.5-15.4) g/dL Hct 36.6 (35.3-44.9) % Plt Count 305 (140-400) K/mcL Neutrophils # 4.4 (1.6-8.9) K/mcL BMP 09/13/16 03:36 Sodium 139 Potassium 4.3 Chloride 103 Carbon Dioxide 25 BUN 18 Creatinine 0.78 Glucose 116 H Calcium 8.7 Liver Function 09/13/16 Range/Units 03:36 Total Bilirubin 1.1 (0.2-1.2) mg/dL Direct Bilirubin 0.9 H (0.0-0.5) mg/dL AST 55 H (5-34) Units/L ALT 60 H (0-55) Units/L Alkaline Phosphatase 698 H (38-126) Units/L Albumin 2.3 L (3.5-5.0) g/dL - ABG Interpretation ABG results: PT/INR, D-dimer PT 11.5 Seconds (9.4-12.1) 09/06/16 10:25 - Impressions Impressions Cath/Invasive Procedure 09/12/16 13:55 IMPRESSION: Fluoroscopy provided for ERCP procedure. Please see the intraoperative note for complete details. D/ 09/13/2016 07:53:38 Storm Souza MD / [facility] Interpreting Provider: Storm Souza MD - VTE Documentation of Mechanical Device: Graduated compression elastic hosiery Consult Discharge Plan - Plan Referrals: Mirza Lopez DO [Primary Care Provider] - (WEB REQUEST SENT ON 09/07/16 This patient is from skilled nursing.. )
--- NOTE | 2016-09-13 15:12 | Discharge Summary ---
<AbyBooker - Last Filed: 09/13/16 15:34> Date of Encounter: 09/13/16 Time of Encounter: 14:49 - Discharge Diagnosis (1) Bacteremia Priority: Primary Status: Acute (2) Common bile duct (CBD) obstruction Priority: Secondary Status: Acute (3) Altered mental status Priority: Secondary Status: Acute Qualifiers: Altered mental status type: disorientation Qualified Code(s): R41.0 - Disorientation, unspecified (4) Elevated LFTs Priority: Secondary Status: Acute (5) Dementia Priority: Secondary Status: Chronic Qualifiers: Dementia type: Alzheimer's disease Alzheimer's disease onset: late-onset Dementia behavioral disturbance: without behavioral disturbance Qualified Code (s): G30.1 - Alzheimer's disease with late onset; F02.80 - Dementia in other diseases classified elsewhere without behavioral disturbance (6) Obstructive jaundice Priority: Secondary Status: Acute (7) Bipolar disorder Priority: Secondary Status: Chronic Qualifiers: Active/Remission status: remission status unspecified Qualified Code(s): F31.9 - Bipolar disorder, unspecified (8) Hypertension Priority: Secondary Status: Acute Qualifiers: Qualified Code(s): I10 - Essential (primary) hypertension (9) DVT prophylaxis Priority: Secondary Status: Acute - Discharge Medications Prescriptions: Amlodipine [Norvasc] 5 mg PO DAILY 30 Days Cefdinir [Omnicef] 300 mg PO BID 7 Days Home Medications: Aripiprazole [Abilify] 15 mg PO QAM 02/22/16 [History] Aspirin 81 mg PO DAILY 02/22/16 [History] Cholecalciferol (Vitamin D3) [Vitamin D3] 2,000 unit PO DAILY 02/22/16 [History] Cyanocobalamin (Vitamin B-12) [Vitamin B-12] 500 mcg SL MOWEFR 02/22/16 [History ] Docusate Sodium [Dok] 100 mg PO DAILY 02/22/16 [History] Lisinopril [Zestril] 20 mg PO DAILY 02/22/16 [History] Multivitamin [Multivitamins] 1 each PO DAILY 02/22/16 [History] Metoprolol XL (24 HR) Succ [Toprol Xl] 25 mg PO BID 09/06/16 [History] Vit C/Vit E/Lutein/Min/[place]-3 [Ocuvite Softgel] 1 cap PO DAILY 09/06/16 [ History] Amlodipine [Norvasc] 5 mg PO DAILY 30 Days 09/13/16 [Rx] Cefdinir [Omnicef] 300 mg PO BID 7 Days 09/13/16 [Rx] Allergies/Adverse Reactions: Allergies ibandronate sodium [From Boniva] Adverse Reaction (Intermediate, Verified 12:28) See Comments trazodone Adverse Reaction (Verified 02/23/16 12:27) Nightmare Date of admission: 09/06/16 14:41 Primary care physician: Mirza Lopez DO Consults: 09/10/16 12:56 Consult to Residential Support Specialist [CONS] Routine Reason for SW Consult: to find out if its ok to DC back to [facility]. 09/10/16 13:53 Consult to Physical Therapy [CONS] Routine Comment: Evaluate, develop and implement POC OT [Consult to Occupational Therapy] [CONS] Routine Comment: Evaluate, develop and implement POC Discharging clinician: Booker Badillo Anticipated date of discharge: 09/13/16 - Patient Status Disposition: Home, Self-Care Condition: Fair Functional capacity at discharge: uses cane/walker Overall status at discharge: patient is progressing back to baseline - Discharge Instructions Follow Up With: Mirza Lopez DO [Primary Care Provider] - (WEB REQUEST SENT ON 09/07/16 This patient is from [facility] ) - Diet and Activity Activity: resume usual activities as tolerated Diet: advance to your usual diet Hospital course: Ms. Beard is a 85 year old female was admitted with a common bile duct obstruction from a large stone. She would undergo a ERCP that was unsuccessful. She would undergo a repeat ERCP that was able to remove the stone in all extraction. Her third function tests are trending down. She did have bacteremia with Klebsiella pneumonia. She has received 7 days of Rocephin. The bacterium is pansensitive. We will discharge her today with a seven-day course of Omnicef to complete her course for gram-negative bacteremia. Today her vital signs are within normal limits. She is eating drinking and having normal bowel movements. We will discharge her pending social service needs. - Time Spent with Patient Total time spent providing and/or coordinating discharge services: Greater than 30 minutes (approximately 40 minutes) - Constitutional Vitals: Temp Pulse Resp BP Pulse Ox 98.4 F 80 15 125/58 92 09/13/16 12:22 09/13/16 12:22 09/13/16 12:22 09/13/16 12:22 09/13/16 12:22 General appearance: Present: A&O X 2 - Head Head exam: Present: atraumatic, normocephalic - Eye Eye exam: Present: PERRL, conjuntiva pink, sclera anicteric Pupils: Present: PERRL - Neck Neck exam general surgery: Present: supple, trachea midline. Absent: lymphadenopathy - Respiratory Respiratory exam: Present: CTAB. Absent: accessory muscle use, rales, rhonchi, wheezes - Cardiovascular Cardiovascular exam: Present: RRR, +S1, +S2. Absent: diastolic murmur, gallop, rubs, systolic murmur - GI/Abdominal GI/Abdominal exam: Present: normal bowel sounds, soft, no peritoneal signs. Absent: distended, tenderness - Extremities Exam Extremities exam: Present: warm, radial pulses palpable and symetrical. Absent : calf tenderness, cyanotic, pedal edema - Skin Skin exam: Present: dry, intact - VTE Documentation of Mechanical Device: Graduated compression elastic hosiery <Maximiliano Tijerina - Last Filed: 09/13/16 18:24> Date of Encounter: 09/13/16 Date of admission: 09/06/16 14:41 Primary care physician: Mirza Lopez DO Consults: 09/10/16 12:56 Consult to Residential Support Specialist [CONS] Routine Reason for SW Consult: to find out if its ok to DC back to [facility]. 09/10/16 13:53 Consult to Physical Therapy [CONS] Routine Comment: Evaluate, develop and implement POC OT [Consult to Occupational Therapy] [CONS] Routine Comment: Evaluate, develop and implement POC Hospital course: Ms. Beard is a 85 year old female - Time Spent with Patient Total time spent providing and/or coordinating discharge services: - Constitutional Vitals: Temp Pulse Resp BP Pulse Ox 97.7 F 70 15 149/61 93 09/13/16 17:22 09/13/16 17:22 09/13/16 17:22 09/13/16 17:22 09/13/16 17:22 - Attending Attestation I examined this patient and my medical decision-making was reviewed with the THERMAL CUTTER HELPER/PA/Advanced Practice Nurse/Resident Physician. I agree with the documented findings, disposition and treatment plan as described except to the extent set forth below. Agree with Dr. Badillo. S/P ERCP, outpatient follow up with GI. D/C today, director client services involved.
[2016-09-14] MEDS: *HR* Enoxaparin 40 MG/0.4 ML SYRINGE SQ SCH (06:28)
--- NOTE | 2016-09-14 06:45 | Internal Med Progress Note ---
<Booker Badillo - Last Filed: 09/14/16 06:49> Date of Encounter: 09/14/16 Time of Encounter: 06:43 - Assessment and plan (1) Bacteremia Status: Acute Assessment and plan: GN bacteremia with Klebsiella Pneumonia. Source is likely from gallbladder and obstructed stone. S/P ERCP with repeat on 09/12/16 Continue Rocephin. she will need a total of 2 weeks of antibiotics. we will discharge her with PO omnicef. Hemodynamically stable and mentation at baseline. (2) Common bile duct (CBD) obstruction Status: Acute Assessment and plan: S/P ERCP and succesful stone extraction. (3) Altered mental status Status: Acute Assessment and plan: improving. patient Alert and orientated to person place, time and situation this AM. Qualifiers: Altered mental status type: disorientation Qualified Code(s): R41.0 - Disorientation, unspecified (4) Elevated LFTs Status: Acute Assessment and plan: obstructive trending down. continue to follow. (5) Dementia Status: Chronic Qualifiers: Dementia type: Alzheimer's disease Alzheimer's disease onset: late-onset Dementia behavioral disturbance: without behavioral disturbance Qualified Code (s): G30.1 - Alzheimer's disease with late onset; F02.80 - Dementia in other diseases classified elsewhere without behavioral disturbance (6) Obstructive jaundice Status: Acute Assessment and plan: plan as above; (7) Bipolar disorder Status: Chronic Assessment and plan: continue abilify. Qualifiers: Active/Remission status: remission status unspecified Qualified Code(s): F31.9 - Bipolar disorder, unspecified (8) Hypertension Status: Acute Assessment and plan: currently above goal. continue home medications. continue PRN hydralazine. Qualifiers: Qualified Code(s): I10 - Essential (primary) hypertension (9) DVT prophylaxis Status: Acute Assessment and plan: on lovenox. - Subjective Interval history: No major events overnight. This Am the patient states she has no complaints. She was medically stable for discharge. Awaiting social issues ( son has yet to choose a home health agency). We will plan for DC today after social issues are resolved. - Constitutional Vitals: Temp Pulse Resp BP Pulse Ox 97.6 F 71 16 151/62 95 09/14/16 03:54 09/14/16 03:54 09/14/16 03:54 09/14/16 03:54 09/14/16 03:54 General appearance: Present: A&O X 2, answers questions appropriately - Head Head exam: Present: atraumatic, normocephalic - Eye Eye exam: Present: PERRL, conjuntiva pink, sclera anicteric Pupils: Present: PERRL - Neck Neck exam general surgery: Present: supple, trachea midline. Absent: lymphadenopathy - Respiratory Respiratory exam: Present: CTAB. Absent: accessory muscle use, rales, rhonchi, wheezes - Cardiovascular Cardiovascular exam: Present: RRR, +S1, +S2. Absent: diastolic murmur, gallop, rubs, systolic murmur - GI/Abdominal GI/Abdominal exam: Present: normal bowel sounds, soft, no peritoneal signs. Absent: distended, tenderness - Extremities Exam Extremities exam: Present: warm, radial pulses palpable and symetrical. Absent : calf tenderness, cyanotic, pedal edema - Skin Skin exam: Present: dry, intact Internal Medicine: Result - Labs CBC & Chem 7: 09/13/16 04:29 09/13/16 03:36 - ABG Interpretation ABG results: PT/INR, D-dimer PT 11.5 Seconds (9.4-12.1) 09/06/16 10:25 - Impressions Impressions Cath/Invasive Procedure 09/12/16 13:55 IMPRESSION: Fluoroscopy provided for ERCP procedure. Please see the intraoperative note for complete details. D/ 09/13/2016 07:53:38 Storm Souza MD / [facility] Interpreting Provider: Storm Souza MD - VTE Documentation of Mechanical Device: Intermittent pneumatic compression device Consult Discharge Plan - Plan Instructions: Cefdinir (By mouth), Sepsis (GEN), Hypertension (DC) Referrals: Mirza Lopez DO [Primary Care Provider] - (WEB REQUEST SENT ON 09/07/16 [facility] patient is [facility] ) Prescriptions: Amlodipine [Norvasc] 5 mg PO DAILY 30 Days Cefdinir [Omnicef] 300 mg PO BID 7 Days <Maximiliano Tijerina - Last Filed: 09/14/16 17:29> Date of Encounter: 09/14/16 - Constitutional Vitals: Temp Pulse Resp BP Pulse Ox 98.4 F 76 16 130/61 94 09/14/16 11:12 09/14/16 11:12 09/14/16 11:12 09/14/16 11:12 09/14/16 11:12 Internal Medicine: Result - Labs CBC & Chem 7: 09/13/16 04:29 09/13/16 03:36 - ABG Interpretation ABG results: PT/INR, D-dimer PT 11.5 Seconds (9.4-12.1) 09/06/16 10:25 - Impressions Impressions Cath/Invasive Procedure 09/12/16 13:55 IMPRESSION: Fluoroscopy provided for ERCP procedure. Please see the intraoperative note for complete details. D/ / 09/13/2016 07:53:38 Storm Souza MD / [facility] Interpreting Provider: Storm Souza MD - Attending Attestation I examined this patient and my medical decision-making was reviewed with the SPECIAL INVESTIGATION UNIT INVESTIGATOR/PA/Advanced Practice Nurse/Resident Physician. I agree with the documented findings, disposition and treatment plan as described except to the extent set forth below. Stable. D/c today. Continue with omnicef.
--- NOTE | 2016-09-14 06:48 | Physician Discharge Referral ---
Home Health/Hosp Referral Info Transfer to: Home Health Provider in Charge Post Discharge: PCP - Diagnosis (1) Bacteremia Status: Acute (2) Common bile duct (CBD) obstruction Status: Acute (3) Altered mental status Status: Acute (4) Elevated LFTs Status: Acute (5) Dementia Status: Chronic (6) Obstructive jaundice Status: Acute (7) Bipolar disorder Status: Chronic (8) Hypertension Status: Acute (9) DVT prophylaxis Status: Acute - Respiratory Orders Smoking Cessation: Smoking cessation has been advised. For more information, call the [place] Tobacco Quit Line at 6-915-RPLJ-NOW. - Diet/Nutrition Diet/Nutrition Orders: Mechanical Soft, Cardiac - Activity Activity Orders: Walker Activity: List: Per PT/OT - Services Needed Following services are medically necessary services: Home Health Aide, Physical Therapy, Occupational Therapy - Transfer Medications Prescriptions: Amlodipine [Norvasc] 5 mg PO DAILY 30 Days Cefdinir [Omnicef] 300 mg PO BID 7 Days Home Medications: Aripiprazole [Abilify] 15 mg PO QAM 02/22/16 [History] Aspirin 81 mg PO DAILY 02/22/16 [History] Cholecalciferol (Vitamin D3) [Vitamin D3] 2,000 unit PO DAILY 02/22/16 [History] Cyanocobalamin (Vitamin B-12) [Vitamin B-12] 500 mcg SL MOWEFR 02/22/16 [History ] Docusate Sodium [Dok] 100 mg PO DAILY 02/22/16 [History] Lisinopril [Zestril] 20 mg PO DAILY 02/22/16 [History] Multivitamin [Multivitamins] 1 each PO DAILY 02/22/16 [History] Metoprolol XL (24 HR) Succ [Toprol Xl] 25 mg PO BID 09/06/16 [History] Vit C/Vit E/Lutein/Min/[place]-3 [Ocuvite Softgel] 1 cap PO DAILY 09/06/16 [ History] Amlodipine [Norvasc] 5 mg PO DAILY 30 Days 09/13/16 [Rx] Cefdinir [Omnicef] 300 mg PO BID 7 Days 09/13/16 [Rx] Allergies/Adverse Reactions: Allergies ibandronate sodium [From Boniva] Adverse Reaction (Intermediate, Verified 12:28) See Comments trazodone Adverse Reaction (Verified 02/23/16 12:27) Nightmare Certification: Further, I certify that my clinical findings support that this patient is homebound (i.e. absences from home require considerable and taxing effort and are for medical reasons or evangelical services or infrequently or short duration when for other reasons) because: Homebound Reason: Leaving home requires considerable and taxing effort due to condition, Altered mental status requiring supervision when leaving home Attestation: My signature below is to certify that this patient is under my care and that I, or nurse practitioner, or a physician's assistant at surgery working with me, has a face-to -face encounter with this patient.
[2016-09-14] MEDS: amLODIPine 5 MG TABLET PO SCH (08:26)
[2016-09-14] MEDS: Metoprolol XL (24 HR) Succ 25 MG TAB.ER.24H PO SCH (08:26)
[2016-09-14] MEDS: Aspirin 81 MG TAB.CHEW PO SCH (08:26)
[2016-09-14] MEDS: Lisinopril 20 MG TABLET PO SCH (08:26)
[2016-09-14] MEDS: ARIPiprazole 5 MG TABLET PO SCH (08:33)
[2016-09-14 11:14] VITALS: BP 130/61
[2016-09-14] MEDS ORDERED: Cefdinir 300 MG CAPSULE PO SCH (11:15)
--- NOTE | 2016-09-17 14:24 | Internal Med Progress Note ---
Date of Encounter: 09/10/16 Time of Encounter: 11:30 - Assessment and plan (1) Common bile duct (CBD) obstruction Status: Acute Assessment and plan: GI on board; attempted ERCP with CBD stenting/stone removal without success due to anatomical abnormality; improved clinically and improving LFTs; continue to monitor and advance diet as tolerated; d/w GI- will consider outpatient referral to tertiary center vs reattempting ERCP; (2) Gram-negative bacteremia Status: Acute Assessment and plan: due to biliary source and obstructive jaundice. 1/2 sets of initial blood cultures grows Klebsiella pneumoniae, has been on IV Zosyn and then Levaquin; will change to IV Cefazolin due to better outcomes; repeat blood cultures have been negative; (3) Obstructive jaundice Status: Acute (4) Bipolar disorder Status: Chronic Qualifiers: Active/Remission status: remission status unspecified Qualified Code(s): F31.9 - Bipolar disorder, unspecified (5) COPD (chronic obstructive pulmonary disease) Status: Chronic Qualifiers: COPD type: unspecified COPD Qualified Code(s): J44.9 - Chronic obstructive pulmonary disease, unspecified (6) Dementia Status: Chronic Assessment and plan: supportive care; PT/OT evaluation pending; Qualifiers: Dementia type: Alzheimer's disease Alzheimer's disease onset: late-onset Dementia behavioral disturbance: without behavioral disturbance Qualified Code (s): G30.1 - Alzheimer's disease with late onset; F02.80 - Dementia in other diseases classified elsewhere without behavioral disturbance - Subjective Interval history: Reports feeling well. No nausea, vomiting, abdominal pain. Tolerates full liquid diet; - Constitutional Vitals: Temp Pulse Resp BP Pulse Ox 98.4 F 76 16 130/61 94 09/14/16 11:12 09/14/16 11:12 09/14/16 11:12 09/14/16 11:12 09/14/16 11:12 General appearance: Present: A&O X 2, answers questions appropriately - Respiratory Respiratory exam: Present: CTAB. Absent: accessory muscle use, rales, rhonchi, wheezes - Cardiovascular Cardiovascular exam: Present: RRR, +S1, +S2. Absent: diastolic murmur, gallop, rubs, systolic murmur - GI/Abdominal GI/Abdominal exam: Present: normal bowel sounds, soft, no peritoneal signs. Absent: distended, tenderness Internal Medicine: Result - Labs CBC & Chem 7: 09/13/16 04:29 09/13/16 03:36 - ABG Interpretation ABG results: PT/INR, D-dimer PT 11.5 Seconds (9.4-12.1) 09/06/16 10:25 - VTE Documentation of Mechanical Device: Intermittent pneumatic compression device Consult Discharge Plan - Plan Instructions: Cefdinir (By mouth), Sepsis (GEN), Hypertension (DC) Referrals: Mirza Lopez DO [Primary Care Provider] - (WEB REQUEST SENT ON 09/07/16 This patient is from group home.. ) Prescriptions: Amlodipine [Norvasc] 5 mg PO DAILY 30 Days Cefdinir [Omnicef] 300 mg PO BID 7 Days
== END 2016-09-14 14:53 | disposition home or self-care (01) | DRG 444 ==
LOC: EMEROO 09:59 → 2ANU 09:59 → SUATTDRO 14:41 → 2ANU 15:04
PROVIDERS: ADMIT Internal Medicine; ATTEND Internal Medicine